=== PATIENT | female | born 1965 | race Caucasian/White ===

== ENCOUNTER 2017-03-02 14:33 | Emergency (ER) | payer BC, SELFPAY ==
[2017-03-02 15:16] VITALS: BP 128/55; PULSE 88; RESP 14; TEMP 36.6; O2SAT 97; BMI 39.5
== END 2017-03-02 15:55 | disposition home or self-care (01) ==
PROVIDERS: Emergency Provider Physician Assistant; Family Provider Family Medicine; PCP Family Medicine
DX: J20.9 Acute bronchitis, unspecified (principal); H66.91 Otitis media, unspecified, right ear
CPT/HCPCS: 99202

== ENCOUNTER → 2017-07-14 15:16 | Outpatient (POV) | payer BC, SELFPAY | PROVIDERS: Visit Provider Physician Assistant | DX: Z00.00 Encounter for general adult medical examination without abnormal findings (principal) ==

== ENCOUNTER → 2017-07-31 10:32 | Outpatient (CLI) | payer BC, SELFPAY ==
--- NOTE | 2017-07-31 10:46 | XR_ITS ---
XR foot LT min 3V HISTORY: ITS.REASON: LT FOOT PAIN ORDERING PHYSICIAN: Chetna Ferguson PATIENT AGE: 51 years COMPARISON: None FINDINGS: Mild hallux valgus with small bony spurring along the lateral distal aspect of the first metatarsal. Osteoarthritic changes are present at the navicular cuneiform joint and the tarsometatarsal junction. There is a small calcaneal spur 5 mm. No fracture or dislocation. No lytic or blastic change IMPRESSION: Osteoarthritis of the first metatarsophalangeal joint with mild hallux valgus along with osteoarthritis of the midfoot
== END ==
PROVIDERS: PCP Family Medicine; Visit Provider Nurse Practitioner Family
DX: M79.672 Pain in left foot (principal)
CPT/HCPCS: 73630

== ENCOUNTER → 2017-12-13 10:12 | Outpatient (CLI) | payer BC, SELFPAY ==
--- NOTE | 2017-12-13 10:18 | XR_ITS ---
EXAM: XR cervical spine 5V HISTORY: ITS.REASON: CERVICALGIA, PARESTHESIA OF SKIN ORDERING PHYSICIAN: Chetna Ferguson PATIENT AGE: 52 years COMPARISON: None FINDINGS: There is degenerative disc disease at C6-C7. No fracture or dislocation. No lytic or blastic change. There is mild uncovertebral hypertrophy at C7-T1 with mild right foraminal narrowing. There is mild left foraminal narrowing at C6-C7. No lytic or blastic change. No cervical ribs. IMPRESSION: Cervical spondylosis with mild degenerative disc disease and foraminal narrowing as described above
== END ==
PROVIDERS: PCP Nurse Practitioner Family; Visit Provider Nurse Practitioner Family
DX: M54.2 Cervicalgia (principal); R20.2 Paresthesia of skin; R20.0 Anesthesia of skin
CPT/HCPCS: 72050

== ENCOUNTER → 2018-05-12 15:10 | Outpatient (POV) | payer BC, SELFPAY | PROVIDERS: Visit Provider Dermatology | DX: Z00.00 Encounter for general adult medical examination without abnormal findings (principal) ==

== ENCOUNTER → 2018-05-12 16:17 | Outpatient (CLI) | payer BC, SELFPAY ==
[2018-05-12 16:47] LABS: Basophils # 0.1 K/mm3 (0-0.2); Basophils % 0.8 % (0.1-2.0); Eosinophils # 0.2 K/mm3 (0.0-0.4); Eosinophils % 2.8 % (0.1-12.0); Hematocrit 41.1 % (37.0-47.0); Hemoglobin 13.6 g/dL (12.2-16.2); Lymphocytes # 2.9 K/mm3 (0.7-4.5); Lymphocytes % 47.5 % (10-50); Mean Corpuscular HGB Conc 33.1 g/dL (31.8-35.4); Mean Corpuscular Hemoglobin 29.9 pg (27.0-31.2); Mean Corpuscular Volume 90.3 fl (81-99); Monocytes # 0.4 K/mm3 (0.1-1.0); Monocytes % 6.4 % (1.7-9.3); Neutrophils # 2.6 K/mm3 (1.8-7.8); Neutrophils % 42.6 % (37.0-80.0); Platelet Count 304 K/mm3 (142-424); Red Blood Count 4.55 M/mm3 (4.20-5.40); Red Cell Distribution Width 13.9 % (11.5-17.5)
[2018-05-12 18:07] LABS: Alanine Aminotransferase 36 U/L (12-78); Albumin/Globulin Ratio 1.3 (1.1-1.8); Alkaline Phosphatase 74 U/L (46-116); Anion Gap 13.7 mEq/L (5-15); Aspartate Amino Transferase 15 U/L (15-37); Bilirubin,Total 0.7 mg/dL (0.2-1.0); Blood Urea Nitrogen 14 mg/dL (7-18); Calcium 9.6 mg/dL (8.5-10.1); Carbon Dioxide 29 mmol/L (21.0-32.0); Chloride 100 mmol/L (98-107); Creatinine,Serum 0.69 mg/dL (0.55-1.02); Estimated Glomerular Filt Rate 90 ml/min (>60); GFR (African American) 109 ML/MIN (>60); Globulin 3.2 gm/dl (1.3-3.2); Glucose 98 mg/dL (74-106); Potassium 3.7 mmoL/L (3.5-5.1); Sodium 139 mmol/L (136-145); Total Protein,Serum 7.2 gm/dL (6.4-8.2)
[2018-05-14 09:24] LABS: Hep A Ab, IgM Negative (Negative); Hepatitis B Core Antibody IgM Negative (Negative); Hepatitis B Surface Antigen Negative (Negative)
[2018-05-15 08:49] LABS: Hepatitis C Antibody <0.1 s/co ratio (0.0-0.9)
[2018-05-18 14:16] LABS: QuantiFERON-TB Gold Plus Negative
== END ==
PROVIDERS: Visit Provider Dermatology
DX: L40.0 Psoriasis vulgaris (principal); Z79.899 Other long term (current) drug therapy
CPT/HCPCS: 36415; 80053; 80074; 85025; 86480

== ENCOUNTER → 2018-05-26 10:19 | Outpatient (POV) | payer BC, SELFPAY | PROVIDERS: Visit Provider Otolaryngology | DX: Z00.00 Encounter for general adult medical examination without abnormal findings (principal) ==

== ENCOUNTER → 2018-07-15 15:45 | Outpatient (CLI) | payer BC, SELFPAY ==
[2018-07-15 16:43] LABS: Basophils % 0.5 % (0.1-2.0); Eosinophils # 0.2 K/mm3 (0.0-0.4); Eosinophils % 2.9 % (0.1-12.0); Hematocrit 40.9 % (37.0-47.0); Hemoglobin 13.5 g/dL (12.2-16.2); Lymphocytes # 2.7 K/mm3 (0.7-4.5); Mean Corpuscular HGB Conc 33.2 g/dL (31.8-35.4); Mean Corpuscular Hemoglobin 29.5 pg (27.0-31.2); Mean Corpuscular Volume 89.1 fl (81-99); Mean Platelet Volume 7.7 fl (7.4-10.4); Monocytes # 0.4 K/mm3 (0.1-1.0); Monocytes % 5.2 % (1.7-9.3); Neutrophils # 3.5 K/mm3 (1.8-7.8); Neutrophils % 51.5 % (37.0-80.0); Platelet Count 314 K/mm3 (142-424); Red Blood Count 4.59 M/mm3 (4.20-5.40); Red Cell Distribution Width 14.3 % (11.5-17.5); White Blood Count 6.7 K/mm3 (4.8-10.8)
[2018-07-15 19:21] LABS: Anion Gap 14.7 mEq/L (5-15); Blood Urea Nitrogen 14 mg/dL (7-18); Calcium 8.9 mg/dL (8.5-10.1); Carbon Dioxide 28 mmol/L (21.0-32.0); Chloride 97 mmol/L (98-107); Estimated Glomerular Filt Rate 88 ml/min (>60); GFR (African American) 107 ML/MIN (>60); Glucose 123 mg/dL (74-106); Sodium 136 mmol/L (136-145)
[2018-07-15 19:24] LABS: Potassium 3.7 mmoL/L (3.5-5.1)
== END ==
PROVIDERS: Visit Provider Orthopaedic Surgery
DX: Z01.818 Encounter for other preprocedural examination (principal)
CPT/HCPCS: 36415; 80048; 85025; 93005

== ENCOUNTER → 2018-08-14 10:16 | Outpatient (CLI) | payer BC, SELFPAY ==
[2018-08-14 10:39] LABS: Basophils % 0.6 % (0.1-2.0); Eosinophils # 0.3 K/mm3 (0.0-0.4); Eosinophils % 6.7 % (0.1-12.0); Hematocrit 43.5 % (37.0-47.0); Hemoglobin 13.8 g/dL (12.2-16.2); Lymphocytes # 1.7 K/mm3 (0.7-4.5); Lymphocytes % 38.2 % (10-50); Mean Corpuscular HGB Conc 31.8 g/dL (31.8-35.4); Mean Corpuscular Hemoglobin 28.3 pg (27.0-31.2); Mean Platelet Volume 7.9 fl (7.4-10.4); Monocytes # 0.3 K/mm3 (0.1-1.0); Monocytes % 5.9 % (1.7-9.3); Neutrophils # 2.2 K/mm3 (1.8-7.8); Neutrophils % 48.5 % (37.0-80.0); Platelet Count 264 K/mm3 (142-424); Red Blood Count 4.89 M/mm3 (4.20-5.40); Red Cell Distribution Width 13.8 % (11.5-17.5); White Blood Count 4.5 K/mm3 (4.8-10.8)
[2018-08-14 11:41] LABS: Anion Gap 15.4 mEq/L (5-15); Blood Urea Nitrogen 16 mg/dL (7-18); Calcium 9.5 mg/dL (8.5-10.1); Carbon Dioxide 29 mmol/L (21.0-32.0); Chloride 101 mmol/L (98-107); Creatinine,Serum 0.85 mg/dL (0.55-1.02); Estimated Glomerular Filt Rate 71 ml/min (>60); GFR (African American) 85 ML/MIN (>60); Glucose 164 mg/dL (74-106); Potassium 4.4 mmoL/L (3.5-5.1); Sodium 141 mmol/L (136-145)
== END ==
PROVIDERS: Visit Provider Orthopaedic Surgery
DX: Z01.818 Encounter for other preprocedural examination (principal); M54.2 Cervicalgia
CPT/HCPCS: 36415; 80048; 85025; 93005

== ENCOUNTER → 2018-12-22 14:44 | Outpatient (POV) | payer BC, SELFPAY | PROVIDERS: Visit Provider Dermatology | DX: Z00.00 Encounter for general adult medical examination without abnormal findings (principal) ==

== ENCOUNTER → 2019-07-16 13:04 | Outpatient (CLI) | payer BC, SELFPAY ==
--- NOTE | 2019-07-16 13:15 | US_ITS ---
PROCEDURE: US THYROID CLINICAL INDICATION: THYROMEGALY Difficulty swallowing COMPARISON: No exams were available for comparison FINDINGS: Right lobe: 4.3 x 1.5 x 1.3 cm. There is diffuse heterogeneous echogenicity. 8 x 5 mm hypoechoic nodule in the mid polar region on the right Left lobe: 3.4 x 1.3 x 1.1 cm with diffuse heterogeneous echogenicity Isthmus: The isthmus is thickened at 4.5 mm also with heterogeneous echogenicity. Additional findings: IMPRESSION: The thyroid gland demonstrates heterogeneous echogenicity throughout given the thyroid is somewhat nodular appearance. There is a 8 x 5 mm hypoechoic nodule in the mid polar region on the right. Recommend six-month follow-up to confirm stability Dictated by: Mike Watts MD 07/16/2019 16:18 Electronically signed by Mike Watts MD in [facility] 07/16/2019 16:18
== END ==
PROVIDERS: PCP Family Medicine; Visit Provider Nurse Practitioner Family
DX: E01.0 Iodine-deficiency related diffuse (endemic) goiter (principal)
CPT/HCPCS: 76536

== ENCOUNTER → 2019-08-04 08:55 | Outpatient (CLI) | payer BC, SELFPAY ==
--- NOTE | 2019-08-04 08:59 | MM_ITS ---
PROCEDURE: MM DIG SCREENING MAMM BI W/CAD Digital Breast Tomosynthesis Included CLINICAL INDICATION: SCREENING There is no personal or family history of breast cancer. COMPARISON: DIGMAMMS MAMMOGRAM SCREEN-MOLD STACKER N/C from 03/02/2008 [facility] DIG MAMM-SCREEN MARILYN from 09/13/2014 [facility] DIG MAMM-SCREEN MARILYN W/CAD from 08/26/2016 TECHNIQUE: Standard CC and MLO images and 3D Tomosynthesis was obtained. R2 CAD reviewed. FINDINGS: The breasts are composed primarily of fat with minimal scattered fibroglandular densities throughout each breast. There is no suspicious lesion in either breast and no suspicious microcalcifications. IMPRESSION: Fatty type breast parenchyma with no suspicious lesions seen BI-RAD Category: 1 Negative FOLLOW-UP: 1YR 1 Year Follow-up (A letter has been sent to the patient regarding results of the study.) Dictated by: Dr. Jose Dash MD 08/06/2019 14:[address] Jose Dash MD in [place] 08/06/2019 14:54
== END ==
PROVIDERS: PCP Family Medicine; Visit Provider Nurse Practitioner Family
DX: Z12.31 Encounter for screening mammogram for malignant neoplasm of breast (principal)
CPT/HCPCS: 77063; 77067

== ENCOUNTER 2020-01-13 13:22 | Emergency (ER) | payer BC, SELFPAY ==
[2020-01-13 14:21] VITALS: BP 136/92; PULSE 91; RESP 18; TEMP 36.8; O2SAT 98; BMI 39.2
--- NOTE | 2020-01-13 14:31 | HMH.EDUTC ---
[facility] [place] Disposition Clinical Impression: Sinusitis Qualifiers: Sinusitis location: unspecified location Chronicity: unspecified Qualified Code(s): J32.9 - Chronic sinusitis, unspecified Disposition: Home, Self-Care Condition on Discharge: Good Instructions: Sinusitis, Sinus Headache, DI for Sinusitis Additional Instructions: ? Start antibiotic today. Be sure to complete entire prescription even if feeling better ? Monitor temp. Tylenol every 4 hours as needed and / or ibuprofen every 6 hours as needed ( As long as your primary care physician has told you that it ok to take both. For fever/aches/pains ER if no less than 101 despite Tylenol or Motrin ? Humidifier/vaporizer or hot steamy shower ? Inhaler every 4-6 hours as needed like we discussed as it was prescribed. If unsure how to use it, ask pharmacist to demonstrate how. Should help open airways and improve cough, wheezing, and shortness of breath ? Mucinex during the day for your cough and cough suppressant only at night. Be sure to drink lots of water. Insurance may not cover a prescriptions for mucinex. Might be cheaper to get 400mg tablets and take 2 tablet in the morning, mid-day and evening with lots of water. *Start steroid today. Helps with inflammation therefore, cough and wheezing. Follow directions on the package. Reviewed side effects. Patient reports taking them before. You was tested for today for COVID19 your test result should be back in the next 24-48 hours, you may call to the [facility] later today or tomorrow to see if your test results are back and the result [phone] [facility] hours are 9am-9pm You was given a handout with instructions for Self Quarantine and Self isolation for while you wait on test results and what to do if they are positive If you are positive the Health Dept will be contacting you also Prescriptions: Amoxicillin/Potassium Clav [Augmentin 875-125 Tablet] 1 tab PO Q12H 10 Days #20 tab Transmission Status: Pending to [facility] predniSONE [Deltasone 10mg tablet] 10 mg PO BID 5 Days #10 tab Transmission Status: Pending to [facility] Fluticasone Propionate [Flonase 50mcg nasal spray 16gm] 1 spr NS DAILY #1 bottle Transmission Status: Pending to [facility] Referrals: Juan Ramon Zhang MD [Primary Care Provider] - As needed Forms: Work/School Release Time of Disposition: 14:41 Medical Decision Making - Gonzalo Inquiry Pt receiving controlled substance: No Gonzalo was queried for this patient: No Vital Signs: 01/13/20 14:21 Temperature 98.2 F Temperature Source Oral Pulse Rate [Radial] 91 H Respiratory Rate 18 Blood Pressure [Right Arm] 136/92 H Blood Pressure Mean [Right Arm] 106 Blood Pressure Source [Right Arm] Automatic Cuff Blood Pressure Position [Right Arm] Sitting 02 Sat by Pulse Oximetry 98 Oxygen Delivery Method Room Air Orders (Tests/Meds): ORDERS Category Date Time Status Covid-19 Nasal PCR ([facility]) Routine Lab 01/13/20 14:17 Ordered Medical Decision Narrative: Patient states that she has taken augmentin and prednisone without complications or reactions [facility] [place] HPI - General Stated complaint: Cough, sinus pressure Time Seen by Provider: 01/13/20 14:31 Mode of Arrival: Ambulatory Source of Information: Patient Limitations: No Limitations Description of Symptoms (Recalled from Triage Doc. by RN): POSSIBLE SINUS INFECTION, WANTS TESTED FOR COVID. SINUS PAIN AND PRESSURE. HEENT Symptoms (Recalled from RN notes): Yes Resp Symptoms (Recalled from RN notes): No Skin Symptoms (Recalled from RN notes): No MS Symptoms (Recalled from RN notes): No Functional Status (Recalled from RN notes): WNL - History of Present Illness Provider Complaint: Patient states that she has been having sinus pain and pressure and feels like she has a sinus infection States that she also wants to get tested for COVID to make sure that she doesnt having it - Related Data Home Medications Medication Instructions Maikel
[2020-01-13 15:28] VITALS: BP 136/92; PULSE 91; RESP 18; TEMP 36.8; O2SAT 98
--- NOTE | 2020-01-13 19:49 | PC.NURSE ---
Patient notified of positive covid results.
== END 2020-01-13 15:29 | disposition home or self-care (01) ==
PROVIDERS: Emergency Provider Nurse Practitioner; PCP Family Medicine
DX: U07.1 COVID-19 (principal); E11.9 Type 2 diabetes mellitus without complications; E78.5 Hyperlipidemia, unspecified; I10 Essential (primary) hypertension; J44.9 Chronic obstructive pulmonary disease, unspecified; E03.9 Hypothyroidism, unspecified; M79.7 Fibromyalgia; Z79.899 Other long term (current) drug therapy
CPT/HCPCS: 99201; U0003

== ENCOUNTER 2020-01-20 10:27 | Emergency (ER) | payer BC, SELFPAY ==
[2020-01-20] VITALS (15 sets, daily range): BP systolic 91–141; BP diastolic 44–100; PULSE 109–117; RESP 18–22; TEMP 36.7–37.3; O2SAT 94–98; BMI 39.0
--- NOTE | 2020-01-20 10:44 | ECG_ITS ---
APPROVED REPORT Exam: Resting ECG HR:96 bpm ECG Measurements Heart Rate 96 AXES CA 134 P 46 QRSd 84 QRS -8 QT 332 T 41 QTc 419 Conclusion Normal sinus rhythm Late r wave progression Abnormal ECG Electronically signed by : Juan Ramon Castaneda, 01/24/2020 07:33:10
--- NOTE | 2020-01-20 10:45 | HMH.EDGENADL ---
ED Disposition Clinical Impression: COVID-19 virus infection, Shortness of breath Disposition: Home, Self-Care Condition on Discharge: Good Instructions: Preventing the Spread of Coronavirus Discharge Instructions Additional Instructions: Return to the emergency department if worsening shortness of breath, intractable vomiting or severe weakness. Dr. Zhang is in the office tomorrow if you need to contact him for follow-up. Take the following supplements: Viatmin c 1000 mg twice a day Zinc sulfate 50 mg daily Vitamin D 1000 units daily Referrals: Juan Ramon Zhang MD [Primary Care Provider] - - Critical Care Critical Care Time: No Attestation: On 01/20/20, the high probability of a clinically significant, sudden or life threatening deterioration of the following system(s) required my full and direct attention, intervention and personal management. The time I documented below is in addition to time spent performing reported procedures but includes the following listed in this critical care notation. Medical Decision Making - Medical Records Medical records reviewed: Yes: I reviewed the patient's medical records. MR Comment: Reviewed urgent treatment center visit 01/13/2020. Diagnosed with sinusitis, COVID-19 swab was sent. Result later returned as positive. - Gonzalo Inquiry Pt receiving controlled substance: No Vital Signs: 01/20/20 10:27 01/20/20 12:42 01/20/20 12:53 Temperature 98.1 F 99.1 F Temperature Source Oral Oral Pulse Rate Pulse Rate [Radial] 113 H 112 H 113 H Respiratory Rate 22 20 20 Blood Pressure Blood Pressure [Right Arm] 100/82 L 117/67 141/100 H Blood Pressure Mean [Right Arm] 88 83 113 Blood Pressure Position Blood Pressure Position [Right Arm] Sitting Sitting 02 Sat by Pulse Oximetry 97 96 96 Oxygen Delivery Method Room Air Room Air Room Air 01/20/20 13:02 01/20/20 13:15 01/20/20 13:30 Temperature 99 F Temperature Source Oral Pulse Rate Pulse Rate [Radial] 115 H 111 H 110 H Respiratory Rate 20 20 22 Blood Pressure Blood Pressure [Right Arm] 91/69 L 114/62 106/72 L Blood Pressure Mean [Right Arm] 76 79 83 Blood Pressure Position Blood Pressure Position [Right Arm] Sitting Sitting Sitting 02 Sat by Pulse Oximetry 96 96 94 L Oxygen Delivery Method Room Air 01/20/20 13:45 01/20/20 14:00 01/20/20 14:16 Temperature 99 F 99 F Temperature Source Oral Oral Pulse Rate Pulse Rate [Radial] 109 H 111 H 115 H Respiratory Rate 22 18 Blood Pressure Blood Pressure [Right Arm] 122/75 120/71 107/78 L Blood Pressure Mean [Right Arm] 90 87 87 Blood Pressure Position Blood Pressure Position [Right Arm] Sitting Sitting Sitting 02 Sat by Pulse Oximetry 96 95 97 Oxygen Delivery Method Room Air Room Air 01/20/20 14:35 01/20/20 14:46 01/20/20 15:00 Temperature Temperature Source Pulse Rate Pulse Rate [Radial] 117 H 112 H 109 H Respiratory Rate Blood Pressure Blood Pressure [Right Arm] 104/54 L 99/44 L 124/60 Blood Pressure Mean [Right Arm] 70 62 81 Blood Pressure Position Blood Pressure Position [Right Arm] Sitting Sitting Sitting 02 Sat by Pulse Oximetry 98 Oxygen Delivery Method Room Air 01/20/20 15:15 01/20/20 15:31 01/20/20 16:49 Temperature 99 F 99 F Temperature Source Oral Oral Pulse Rate 112 H Pulse Rate [Radial] 115 H 115 H Respiratory Rate 22 22 Blood Pressure 122/74 Blood Pressure [Right Arm] 119/79 139/67 Blood Pressure Mean [Right Arm] 92 91 Blood Pressure Position Sitting Blood Pressure Position [Right Arm] Sitting Sitting 02 Sat by Pulse Oximetry 97 Oxygen Delivery Method Room Air Room Air - Lab Data Lab results reviewed: Yes: I reviewed the patient's lab results. Lab Results 01/20/20 10:55: WBC 6.5, RBC 5.15, Hgb 15.4, Hct 47.2 H, MCV 91.8, MCH 29.9, MCHC 32.6, RDW 14.6, Plt Count 209, MPV 7.6, Neut % (Auto) 71.0, Lymph % (Auto) 23.5, [place] % (Auto) 4.7, Eos % (Auto) 0.4, Baso %
--- NOTE | 2020-01-20 10:56 | XR_ITS ---
PROCEDURE: XR CHEST PORTABLE CLINICAL HISTORY: covid-19, soa COMPARISON: CR CXR CHEST(2 VIEWS-NOT PORTABLE) from 05/25/2012 CR CXR CHEST(2 VIEWS-NOT PORTABLE) from 08/09/2015 FINDINGS: Cardiomegaly without failure. The lungs are clear without infiltrates, suspicious nodules, or pleural effusions. No acute bony abnormalities. IMPRESSION: Cardiomegaly otherwise negative Dictated by: Mike Watts MD 01/20/2020 11:33 Mike Watts MD in [place] 01/20/2020 11:33
[2020-01-20 11:16] LABS: Chloride 99 mmol/L (98-107); Potassium 4.5 mmoL/L (3.5-5.1); Sodium 137 mmol/L (136-145)
[2020-01-20 11:19] LABS: Alanine Aminotransferase 34 U/L (12-78); Albumin Level 4.5 g/dl (3.5-5.0); Albumin/Globulin Ratio 1.4 (1.1-1.8); Alkaline Phosphatase 95 U/L (38-126); Anion Gap 13.5 mEq/L (5-15); Aspartate Amino Transferase 31 U/L (14-36); Bilirubin,Total 0.6 mg/dl (0.2-1.3); Blood Urea Nitrogen 14 mg/dl (7-17); Calcium 10.2 mg/dl (8.4-10.2); Carbon Dioxide 29 mmol/L (22.0-30.0); Creatinine Clearance Estimated 161 mL/min (50-200); Estimated Glomerular Filt Rate 88 ml/min (>60); GFR (African American) 106 ML/MIN (>60); Globulin 3.3 g/dL (1.3-3.2); Glucose 153 mg/dl (74-100); Total Protein,Serum 7.8 g/dl (6.3-8.2)
[2020-01-20 11:21] LABS: Lactic Acid 2.6 mmol/L (0.7-2.1)
[2020-01-20 11:24] LABS: D-Dimer 0.86 ug/mL (0.15-8.0)
[2020-01-20 11:28] LABS: Basophils % 0.5 % (0.1-2.0); Eosinophils % 0.4 % (0.1-12.0); Hematocrit 47.2 % (37.0-47.0); Hemoglobin 15.4 g/dL (12.2-16.2); Lymphocytes # 1.5 K/mm3 (0.7-4.5); Lymphocytes % 23.5 % (10-50); Mean Corpuscular HGB Conc 32.6 g/dL (31.8-35.4); Mean Corpuscular Hemoglobin 29.9 pg (27.0-31.2); Mean Corpuscular Volume 91.8 fl (81-99); Mean Platelet Volume 7.6 fl (7.4-10.4); Monocytes # 0.3 K/mm3 (0.1-1.0); Monocytes % 4.7 % (1.7-9.3); Neutrophils # 4.6 K/mm3 (1.8-7.8); Platelet Count 209 K/mm3 (142-424); Red Blood Count 5.15 M/mm3 (4.20-5.40); Red Cell Distribution Width 14.6 % (11.5-17.5); White Blood Count 6.5 K/mm3 (4.8-10.8)
[2020-01-20 11:32] LABS: Troponin I < 0.01 ng/ml (0.00-0.034)
--- NOTE | 2020-01-20 12:35 | PC.NURSE ---
Discussed with pt potential side effects of infusion. Educated pt on fact sheet and consent. No questions at this time. Will continue to monitor
--- NOTE | 2020-01-20 13:00 | PC.NURSE ---
pt astrid. medications
--- NOTE | 2020-01-20 13:30 | PC.NURSE ---
pt resting offers no c/o at present
--- NOTE | 2020-01-20 13:42 | PC.NURSE ---
IV INFUSION COMPLETED
--- NOTE | 2020-01-20 14:00 | PC.NURSE ---
iv site with no redness or swelling noted. pt astrid medications
--- NOTE | 2020-01-20 15:00 | PC.NURSE ---
pt resting c/o nausea
[2020-01-20 15:04] LABS: Reflex Lactic Add Lactic Reflex
== END 2020-01-20 16:51 | disposition home or self-care (01) ==
PROVIDERS: Emergency Provider Emergency Medicine; PCP Family Medicine
DX: U07.1 COVID-19 (principal); J45.909 Unspecified asthma, uncomplicated; E11.9 Type 2 diabetes mellitus without complications; E78.5 Hyperlipidemia, unspecified; E03.9 Hypothyroidism, unspecified; R01.1 Cardiac murmur, unspecified; M79.7 Fibromyalgia; Z79.899 Other long term (current) drug therapy
CPT/HCPCS: 71045; 80053; 83605; 84484; 85025; 85378; 87040; 93005; 96365; 96375; 96376; 99284; J2405

== ENCOUNTER → 2020-05-09 15:26 | Outpatient (POV) | payer BC, SELFPAY | PROVIDERS: Visit Provider Dermatology | DX: Z00.00 Encounter for general adult medical examination without abnormal findings (principal) ==

== ENCOUNTER → 2020-05-12 13:42 | Outpatient (CLI) | payer BC, SELFPAY ==
--- NOTE | 2020-05-12 13:45 | US_ITS ---
PROCEDURE: US THYROID CLINICAL INDICATION: THYROID NODULE COMPARISON: US US THYROID from 07/16/2019 FINDINGS: The thyroid gland has diffuse heterogeneous echogenicity with multinodular contour. This makes nodular evaluation somewhat difficult. Some nodules outline below may only be related to heterogeneous echogenicity. Right lobe: 3.8 x 1.1 x 1.3 cm. Ten by 4 mm hypoechoic nodule upper pole. Unchanged. 8 x 5 mm hypoechoic nodule lower pole unchanged. An additional nodule measuring 8 mm is demonstrated along the lower pole which may be separate from the thyroid gland or an exophytic nodule measuring 8 mm. This was not previously demonstrated but may have been due to the imaging technique. Consider short-term follow-up with attention to this region to confirm stability. Left lobe: 3.4 x 0.7 x 1.1 cm. Heterogeneous echogenicity. Small hyperechoic nodule in the mid polar region at 5 mm. This is unchanged. Isthmus: The isthmus is thickened 5 mm. A 5 mm hypoechoic nodules present in the mid aspect of the isthmus unchanged. Additional findings: IMPRESSION: Diffuse heterogeneous echogenicity of the thyroid gland with multinodular contour making nodule evaluation difficult. Most nodular regions are unchanged. There is an additional nodule along the lower pole on the right which may be separate from the thyroid gland measuring 8 mm. This was not previously demonstrated but could be due to intra observer variance. Suggest 6 month follow-up with attention to this region to confirm short term stability Dictated by: Mike Watts MD 05/13/2020 10:04 Mike Watts MD in [place] 05/13/2020 10:04
== END ==
PROVIDERS: PCP Family Medicine; Visit Provider Nurse Practitioner Family
DX: E04.1 Nontoxic single thyroid nodule (principal)
CPT/HCPCS: 76536

== ENCOUNTER 2020-11-19 10:01 | Emergency (ER) | payer BC, SELFPAY ==
[2020-11-19 11:00] VITALS: BP 144/92; PULSE 88; RESP 20; TEMP 36.9; O2SAT 97; BMI 39.5
--- NOTE | 2020-11-19 11:27 | HMH.EDUTC ---
[facility] [place] Disposition Clinical Impression: Sinusitis Qualifiers: Sinusitis location: unspecified location Chronicity: acute Recurrence: non-recurrent Qualified Code(s): J01.90 - Acute sinusitis, unspecified Disposition: Home, Self-Care Condition on Discharge: Good Instructions: Sinusitis, DI for Sinusitis Additional Instructions: Drink plenty of fluids. Take tylenol or ibuprofen for pain or fever. Take the medications as directed. Follow up with your regular doctor. GO TO THE ER FOR ANY WORSENING SYMPTOMS Quarantine until you know the results of your covid-19 test. If it is positive, the health department should call you and give you further instructions about your length of Quarantine and other things. Notify your school or workplace of your results and follow their instructions regarding return to work/school. The cough medication (promethazine dm) will make you drowsy, so don't drive or operate heavy machinery after taking it. Prescriptions: Promethazine/Dextromethorphan [Promethazine-Dm Syrup] 5 ml PO Q6HP PRN #240 ml PRN Reason: Cough Transmission Status: Received by [facility] Amoxicillin/Potassium Clav [Augmentin 875-125 Tablet] 1 tab PO Q12H 10 Days #20 tab Transmission Status: Received by [facility] methylPREDNISolone [Medrol] 4 mg PO DIRECTED 6 Days #21 packet Transmission Status: Received by [facility] Referrals: Juan Ramon Zhang MD [Primary Care Provider] - Forms: Work/School Release Time of Disposition: 11:33 Medical Decision Making - Medical Records Medical records reviewed: No: I reviewed the patient's medical records. - Gonzalo Inquiry Pt receiving controlled substance: No Vital Signs: 11/19/20 11:00 11/19/20 11:35 Temperature 98.5 F 98.5 F Temperature Source Oral Pulse Rate 88 Pulse Rate [Right Brachial] 88 Respiratory Rate 20 20 Blood Pressure 144/92 H Blood Pressure [Right Arm] 144/92 H Blood Pressure Mean [Right Arm] 109 Blood Pressure Source [Right Arm] Automatic Cuff Blood Pressure Position [Right Arm] Sitting 02 Sat by Pulse Oximetry 97 Oxygen Delivery Method Room Air Orders (Tests/Meds): ORDERS Category Date Time Status Covid-19 Nasal PCR ([facility]) Routine Lab 11/19/20 11:41 Ordered Covid-19 Nasal PCR ([facility]) Routine Lab 11/19/20 11:43 Received [facility] [place] HPI - General Stated complaint: sinus pressure Time Seen by Provider: 11/19/20 11:27 Mode of Arrival: Ambulatory Source of Information: Patient Limitations: No Limitations Description of Symptoms (Recalled from Triage Doc. by RN): PATIENT C/O SNEEZING AND SINUS PRESSURE HEENT Symptoms (Recalled from RN notes): Yes Resp Symptoms (Recalled from RN notes): No Skin Symptoms (Recalled from RN notes): No MS Symptoms (Recalled from RN notes): No Functional Status (Recalled from RN notes): WNL - History of Present Illness Provider Complaint: She has had sinus congestion and sinus pressure for the past 3 weeks. She believes that she has a sinus infection. She denies any known covid-19 exposure. She denies any fever/chills/body aches. Onset (ago): minute(s) - Related Data Previous Rx's Medication Instructions Recorded Amoxicillin/Potassium Clav 1 tab PO Q12H 10 Days #20 tab 11/19/20 [Augmentin 875-125 Tablet] Promethazine/Dextromethorphan 5 ml PO Q6HP PRN #240 ml 11/19/20 [Promethazine-Dm Syrup] methylPREDNISolone [Medrol] 4 mg PO DIRECTED 6 Days #21 11/19/20 packet Allergies Allergy/AdvReac Type Severity Reaction Status Date / Time No Known Allergies Allergy Verified 11/19/20 11:22 - Worker's Comp Is this a Worker's Comp case?: No [facility] History - Hepatitis A Screen Drug use history?: No High risk sexual behaviors?: No History of sexually transmitted infection?: No Currently employed?: No Childcare worker?: No Do you have indoor plumbing?: Yes Do you have electricity?: Yes Attestation statement:: This patient has been screened for Hepa
[2020-11-19 11:35] VITALS: BP 144/92; PULSE 88; RESP 20; TEMP 36.9; O2SAT 97
== END 2020-11-19 11:50 | disposition home or self-care (01) ==
PROVIDERS: Emergency Provider Nurse Practitioner Family; PCP Family Medicine
DX: J01.90 Acute sinusitis, unspecified (principal)
CPT/HCPCS: 99202; C9803; G0463; U0003; U0005

== ENCOUNTER 2021-01-04 16:44 | Emergency (ER) | payer BC, SELFPAY ==
[2021-01-04 16:45] VITALS: BP 124/85; PULSE 92; RESP 18; TEMP 36.6; O2SAT 94; BMI 39.5
--- NOTE | 2021-01-04 17:06 | CT_ITS ---
PROCEDURE INFORMATION: Exam: CT Cervical Spine Without Contrast Exam date and time: 01/04/2021 5:06 PM Age: 55 years old Clinical indication: Injury or trauma; Fall; Blunt trauma TECHNIQUE: Imaging protocol: Computed tomography images of the cervical spine without contrast. Radiation optimization: All CT scans at this facility use at least one of these dose optimization techniques: automated exposure control; mA and/or kV adjustment per patient size (includes targeted exams where dose is matched to clinical indication); or iterative reconstruction. COMPARISON: CR [id number] XR cervical spine 5V 12/13/2017 10:20 AM FINDINGS: Bones/joints: Anterior fusion noted C5-C6 without evidence of complication. The facet joints demonstrate mild degenerative hypertrophy and sclerosis. There is no evidence of acute fracture. Discs/Spinal canal/Neural foramina: The cervical spine demonstrates mild degenerative changes at multiple levels. Prevertebral Space: No prevertebral soft tissue swelling is present. Lungs: Lung apices are normal. Soft tissues: Unremarkable. IMPRESSION: 1. Anterior fusion noted C5-C6 without evidence of complication. 2. The cervical spine demonstrates mild degenerative changes at multiple levels. 3. No evidence of acute fracture.
--- NOTE | 2021-01-04 17:06 | CT_ITS ---
PROCEDURE INFORMATION: Exam: CT Thoracic Spine Without Contrast Exam date and time: 01/04/2021 5:06 PM Age: 55 years old Clinical indication: Injury or trauma; Fall; Blunt trauma (contusions or hematomas) TECHNIQUE: Imaging protocol: Computed tomography images of the thoracic spine without contrast. Radiation optimization: All CT scans at this facility use at least one of these dose optimization techniques: automated exposure control; mA and/or kV adjustment per patient size (includes targeted exams where dose is matched to clinical indication); or iterative reconstruction. COMPARISON: CT CERVICAL SPINE WO CON 01/04/2021 5:17 PM FINDINGS: Vertebrae: There is no evidence of acute fracture. The facet joints demonstrate mild degenerative hypertrophy and sclerosis. Discs/Spinal canal/Neural foramina: The thoracic spine demonstrates mild degenerative changes at multiple levels. Other bones/joints: Sclerotic changes noted along the inferior aspect of T9. Soft tissues: Unremarkable. IMPRESSION: 1. Sclerotic changes noted along the inferior aspect of T9. 2. No evidence of acute fracture. 3. The thoracic spine demonstrates mild degenerative changes at multiple levels.
--- NOTE | 2021-01-04 17:06 | CT_ITS ---
PROCEDURE INFORMATION: Exam: CT Lumbar Spine Without Contrast Exam date and time: 01/04/2021 5:06 PM Age: 55 years old Clinical indication: Injury or trauma; Fall; Blunt trauma (contusions or hematomas) TECHNIQUE: Imaging protocol: Computed tomography images of the lumbar spine without contrast. Radiation optimization: All CT scans at this facility use at least one of these dose optimization techniques: automated exposure control; mA and/or kV adjustment per patient size (includes targeted exams where dose is matched to clinical indication); or iterative reconstruction. COMPARISON: CT THORACIC SPINE WO CON 01/04/2021 5:20 PM FINDINGS: Vertebrae: Schmorl's node along the superior endplate of L3. There is no evidence of acute fracture. Discs/Spinal canal/Neural foramina: The lumbar spine demonstrates mild degenerative changes at multiple levels. Soft tissues: Unremarkable. IMPRESSION: 1. The lumbar spine demonstrates mild degenerative changes at multiple levels. 2. No evidence of acute fracture.
[2021-01-04 18:18] VITALS: BP 145/64; PULSE 58; RESP 16; O2SAT 99
--- NOTE | 2021-01-04 18:26 | HMH.EDGENADL ---
ED Disposition Clinical Impression: Lower back injury Qualifiers: Encounter type: initial encounter Qualified Code(s): S39.92XA - Unspecified injury of lower back, initial encounter Lumbar strain Qualifiers: Encounter type: initial encounter Qualified Code(s): S39.012A - Strain of muscle, fascia and tendon of lower back, initial encounter Disposition: Home, Self-Care Condition on Discharge: Fair Instructions: DI for Low Back Pain Additional Instructions: Rest, heating pad as needed. Percocet as needed for pain. Additional instructions for BACK PAIN: See your physician as soon as possible for further evaluation. Return immediately if back pain becomes intolerable, or if fever, numbness or weakness of your legs, loss of control of your bowels or bladder. Additional instructions for CONTROLLED SUBSTANCES: You have been prescribed a medication that is a controlled substance. Controlled substances include pain medications known as opiates and sedative nerve medications known as benzodiazepines. Tramadol, fioricet, and gabapentin are also controlled substances. Some common opiates include: Codeine (such as Tylenol #3) Hydrocodone (Vicodin, Lortab, Lorcet, Glidden) Oxycodone (Percocet, Percodan, Oxycodone, Oxy IR) Some common benzodiazepines include: Diazepam (Valium) Lorazepam (Ativan) Alprazolam (Xanax) Clonazepam (Klonopin) Oxazepam (Serax) All of these controlled substances are highly addictive and frequently abused. Misuse can and frequently does lead to addiction as well as overdose and . Medication should be stored in a locked cabinet or other secure storage unit. Do not store the medication in a motor vehicle. Short term supplies, 3 days or less, are prescribed because of the highly addictive nature of the medication. Any of the controlled substance medication NOT taken should be disposed of properly and NOT SAVED. The recommended method of disposing of unused medications is: Place the medicines in a sealable plastic bag. If the medicine is a solid, crush it or add water to dissolve it. Add something undesirable (cat litter, coffee grounds, etc.) Dispose of sealed bag in household trash Do not flush or pour unused medicines down a sink or drain. Controlled substances should not be shared, given away or sold. Because of the addictive nature and frequent abuse, these medications are sometimes stolen. These medications should be kept in a safe place where they cannot be stolen. Do not keep them in your car or purse. Lost or stolen prescriptions for controlled substances WILL NOT BE REFILLED in this emergency department, regardless of whether a police report was filed. Prescriptions: Oxycodone HCl/Acetaminophen [Percocet 5/325mg tablet] 1 tab PO Q6HP PRN #10 tab PRN Reason: Moderate To Severe Pain Transmission Status: Received by [facility] Referrals: Juan Ramon Zhang MD [Primary Care Provider] - - Critical Care Critical Care Time: No Attestation: On 01/04/21, the high probability of a clinically significant, sudden or life threatening deterioration of the following system(s) required my full and direct attention, intervention and personal management. The time I documented below is in addition to time spent performing reported procedures but includes the following listed in this critical care notation. Medical Decision Making - Gonzalo Inquiry Pt receiving controlled substance: Yes Gonzalo was queried for this patient: Yes Risks and benefits of using a controlled substance: were discussed with pt by me Vital Signs: 01/04/21 16:45 01/04/21 18:18 Temperature 97.8 F Temperature Source Oral Pulse Rate 58 L Pulse Rate [Right Radial] 92 H Respiratory Rate 18 16 Blood Pressure 145/64 H Blood Pressure [Right Arm] 124/85 Blood Pressure Mean [Right Arm] 98 Blood Pressure Source Automatic Cuff Blood Pressure Source [Right Arm] Automatic Cuff Blood Pressur
--- NOTE | 2021-01-04 18:40 | PC.NURSE ---
PT ambulated to bathroom with 2 assist. PT c/o back pain and spasms still.
[2021-01-04 19:15] VITALS: BP 132/70; PULSE 87; RESP 16; TEMP 36.8; O2SAT 98
== END 2021-01-04 19:17 | disposition home or self-care (01) ==
PROVIDERS: Emergency Provider Emergency Medicine; PCP Family Medicine
DX: S39.92XA Unspecified injury of lower back, initial encounter (principal); S39.012A Strain of muscle, fascia and tendon of lower back, initial encounter; W01.0XXA Fall on same level from slipping, tripping and stumbling without subsequent striking against object, initial encounter; Y92.017 Garden or yard in single-family (private) house as the place of occurrence of the external cause; E11.9 Type 2 diabetes mellitus without complications; I10 Essential (primary) hypertension; R01.1 Cardiac murmur, unspecified; E78.5 Hyperlipidemia, unspecified; E03.9 Hypothyroidism, unspecified; Z79.899 Other long term (current) drug therapy
CPT/HCPCS: 72125; 72128; 72131; 96374; 96375; 99282; J2405

== ENCOUNTER 2021-02-16 09:01 | Emergency (ER) | payer BC, SELFPAY ==
[2021-02-16 09:11] VITALS: BP 134/68; PULSE 90; RESP 20; TEMP 36.9; O2SAT 97; BMI 39.5
--- NOTE | 2021-02-16 09:19 | XR_ITS ---
PROCEDURE: XR CHEST 2V CLINICAL HISTORY: productive cough COMPARISON: CR CXR CHEST(2 VIEWS-NOT PORTABLE) from 05/25/2012 CR CXR CHEST(2 VIEWS-NOT PORTABLE) from 08/09/2015 CR XR CHEST PORTABLE from 01/20/2020 FINDINGS: The cardiomediastinal silhouette and pulmonary vascularity are within normal limits. The lungs are clear without infiltrates, suspicious nodules, or pleural effusions. There is a bone plate over lower cervical spine IMPRESSION: No acute findings. Dictated by: Mike Watts MD 02/16/2021 09:45 Mike Watts MD in [place] 02/16/2021 09:45
--- NOTE | 2021-02-16 09:20 | HMH.EDUTC ---
[facility] Disposition Clinical Impression: Acute exacerbation of chronic bronchitis Disposition: Home, Self-Care Condition on Discharge: Good Instructions: DI for Chronic Bronchitis Additional Instructions: Drink plenty of fluids. Take tylenol or ibuprofen for pain or fever. Take the medications as directed. Follow up with your regular doctor. GO TO THE ER FOR ANY WORSENING SYMPTOMS Don't start the oral steroids until tomorrow, since you had the shot here today. The cough medication (promethazine dm) will make you drowsy, so don't drive or operate heavy machinery after taking it. Prescriptions: Promethazine/Dextromethorphan [Promethazine-Dm Syrup] 5 ml PO Q6HP PRN #240 ml PRN Reason: Cough Transmission Status: Received by [facility] Amoxicillin/Potassium Clav [Augmentin 875-125 Tablet] 1 tab PO Q12H 10 Days #20 tab Transmission Status: Received by [facility] methylPREDNISolone [Medrol] 4 mg PO DIRECTED 6 Days #21 packet Transmission Status: Received by [facility] guaiFENesin [Mucinex 600mg tablet] 1 - 2 tab PO BIDP PRN #30 tab PRN Reason: Congestion Transmission Status: Received by [facility] Referrals: Juan Ramon Zhang MD [Primary Care Provider] - Time of Disposition: 10:20 Medical Decision Making - Medical Records Medical records reviewed: No: I reviewed the patient's medical records. - Gonzalo Inquiry Pt receiving controlled substance: No Vital Signs: 02/16/21 09:11 Temperature 98.4 F Temperature Source Oral Pulse Rate [Left] 90 Respiratory Rate 20 Blood Pressure [Right Arm] 134/68 Blood Pressure Mean [Right Arm] 90 02 Sat by Pulse Oximetry 97 Orders (Tests/Meds): ED MEDICATIONS Discontinued Medications Generic Name Dose Route Start Last Admin Trade Name Freq PRN Reason Stop Dose Admin Ceftriaxone Sodium 1 gm 02/16/21 10:03 02/16/21 10:20 Ceftriaxone 1gm Vial IM 02/16/21 10:04 1 gm ONCE ONE Administration Lidocaine HCl 0 ml 02/16/21 10:03 02/16/21 10:21 Lidocaine 1% 5ml Pf Vial IM 02/16/21 10:04 2 ml ONCE ONE Administration Methylprednisolone Sodium Succinate 125 mg 02/16/21 10:03 02/16/21 10:22 Methylprednisolone Sod Succ 125mg Vial IM 02/16/21 10:04 125 mg ONCE ONE Administration ORDERS Category Date Time Status Full Resp Panel w/COVID ([facility]) Routine Lab 02/16/21 10:18 Ordered [facility] HPI - General Stated complaint: covid exposure, sore throat, cough, body aches Time Seen by Provider: 02/16/21 09:20 Mode of Arrival: Ambulatory Source of Information: Patient Limitations: No Limitations Description of Symptoms (Recalled from Triage Doc. by RN): pt c/o a productive cough with green sputum. HEENT Symptoms (Recalled from RN notes): No Resp Symptoms (Recalled from RN notes): Yes (productive cough with green sputum) Skin Symptoms (Recalled from RN notes): No MS Symptoms (Recalled from RN notes): No Functional Status (Recalled from RN notes): wnl - History of Present Illness Provider Complaint: She states that for the past 3 days she has had worsening chest and sinus congestion. She has a sore throat also. She has a history of a having chronic bronchitis since having Covid-19 in December 2019. She denies shortness of breath and fever. - Related Data Home Medications Medication Instructions Recorded Confirmed dapagliflozin 5 mg tablet 5 mg PO QAM 07/20/17 06/27/18 gabapentin 300 mg capsule 300 mg PO BID 07/20/17 06/27/18 levocetirizine 5 mg tablet 5 mg PO QHS 07/20/17 06/27/18 olmesartan 20 mg-amlodipine 5 1 tab PO ONCE 07/20/17 06/27/18 mg-hydrochlorothiazide 12.5 mg tablet thyroid (pork) 30 mg tablet 30 mg PO ONCE 07/20/17 06/27/18 turmeric root extract 500 mg 1,000 mg PO BID 07/20/17 06/27/18 capsule Amitriptyline HCl [Elavil 10mg 10 mg PO DAILY 06/05/18 06/27/18 tablet] Chrm/Vineg/Bit-Orang Peel/Gr T 1 each PO DAILY 06/05/18 06/27/18 [Apple Cider Vinegar Plus Tb]
[2021-02-16 10:43] VITALS: BP 134/68; PULSE 90; RESP 20; TEMP 36.9
[2021-02-16 10:48] LABS: Adenovirus,PCR Not Detected (NotDetected); Bordetella Pertussis Not Detected (NotDetected); Chlamydophila Pneumoniae, PCR Not Detected (NotDetected); Coronavirus 19, PCR Not Detected (NotDetected); Coronavirus 229E Not Detected (NotDetected); Coronavirus NL63 Not Detected (NotDetected); Coronavirus OC43 Not Detected (NotDetected); Coronovirus HKU1,PCR Not Detected (NotDetected); Human Metapneumovirus Not Detected (NotDetected); Influenza A, PCR Not Detected (NotDetected); Influenza AH1, 2009 Not Detected (NotDetected); Influenza AH1, PCR Not Detected (NotDetected); Influenza AH3,PCR Not Detected (NotDetected); Influenza B, PCR Not Detected (NotDetected); Mycoplasma Pneumoniae, PCR Not Detected (NotDetected); Parainfluenza 1, PCR Not Detected (NotDetected); Parainfluenza 2, PCR Not Detected (NotDetected); Parainfluenza 3, PCR Not Detected (NotDetected); Parainfluenza 4, PCR Not Detected (NotDetected); Respiratory Syncytial Virus Not Detected (NotDetected)
[2021-02-16 12:43] LABS: Rhinovirus/Enterovirus Detected (NotDetected)
== END 2021-02-16 10:44 | disposition home or self-care (01) ==
PROVIDERS: Emergency Provider Nurse Practitioner Family; PCP Family Medicine
DX: J20.9 Acute bronchitis, unspecified (principal); J44.1 Chronic obstructive pulmonary disease with (acute) exacerbation; E11.9 Type 2 diabetes mellitus without complications; E03.9 Hypothyroidism, unspecified; I10 Essential (primary) hypertension; M79.7 Fibromyalgia; Z20.822 Contact with and (suspected) exposure to COVID-19
CPT/HCPCS: 71046; 87581; 87632; 87798; 96372; 99202; C9803; G0463; U0003; U0005

== ENCOUNTER → 2021-03-22 09:24 | Outpatient (CLI) | payer BC, SELFPAY ==
[2021-03-23 13:23] LABS: Covid-19 Nasal PCR Sendout Lex POSITIVE
== END ==
PROVIDERS: Visit Provider Nurse Practitioner
DX: U07.1 COVID-19 (principal)
CPT/HCPCS: C9803; U0004; U0005

== ENCOUNTER 2021-03-25 08:59 | Emergency (ER) | payer BC, SELFPAY ==
[2021-03-25 09:17] VITALS: BP 158/76; PULSE 87; RESP 16; TEMP 36.9; O2SAT 96; BMI 40.0
--- NOTE | 2021-03-25 09:48 | HMH.EDUTC ---
[facility] [place] Disposition Clinical Impression: COVID-19, Bronchitis Otitis media Qualifiers: Otitis media type: suppurative Chronicity: acute Laterality: bilateral Recurrence: non-recurrent Spontaneous tympanic membrane rupture: without spontaneous rupture Qualified Code(s): H66.003 - Acute suppurative otitis media without spontaneous rupture of ear drum, bilateral Disposition: Home, Self-Care Condition on Discharge: Good Instructions: Middle Ear Infection, DI for COVID-19 (Suspected or Confirmed ), Preventing the Spread of Coronavirus Discharge Instructions Additional Instructions: Drink plenty of fluids. Take tylenol or ibuprofen for pain or fever. Take the medications as directed. Follow up with your regular doctor. GO TO THE ER FOR ANY WORSENING SYMPTOMS The cough medication (promethazine dm) will make you drowsy, so don't drive or operate heavy machinery after taking it. Prescriptions: Promethazine/Dextromethorphan [Promethazine-Dm Syrup] 5 ml PO Q6HP PRN #240 ml PRN Reason: Cough Transmission Status: Received by [facility] methylPREDNISolone [Medrol] 4 mg PO DIRECTED 6 Days #21 packet Transmission Status: Received by [facility] guaiFENesin [Mucinex 600mg tablet] 1 - 2 tab PO BIDP PRN #30 tab PRN Reason: Congestion Transmission Status: Received by [facility] Azithromycin [Z-Jovan 250mg Tab*] 250 mg PO UD DOSE PK #6 tab Transmission Status: Received by [facility] Referrals: Juan Ramon Zhang MD [Primary Care Provider] - Time of Disposition: 09:53 Medical Decision Making - Medical Records Medical records reviewed: No: I reviewed the patient's medical records. - Gonzalo Inquiry Pt receiving controlled substance: No Vital Signs: 03/25/21 09:17 03/25/21 09:53 Temperature 98.5 F 98.5 F Temperature Source Oral Pulse Rate 87 Pulse Rate [Left] 87 Respiratory Rate 16 16 Blood Pressure 158/76 H Blood Pressure [Right Arm] 158/76 H Blood Pressure Mean [Right Arm] 103 02 Sat by Pulse Oximetry 96 - Lab Data Lab results reviewed: Yes: I reviewed the patient's lab results. [facility] [place] HPI - General Stated complaint: rt ear pain, cough, KHALIL, congestion Time Seen by Provider: 03/25/21 09:25 Mode of Arrival: Ambulatory Source of Information: Patient Limitations: No Limitations Description of Symptoms (Recalled from Triage Doc. by RN): pt c/o a cough, KHALIL and R ear ache. pt was positive for covid sometime last week. HEENT Symptoms (Recalled from RN notes): Yes Resp Symptoms (Recalled from RN notes): Yes Skin Symptoms (Recalled from RN notes): No MS Symptoms (Recalled from RN notes): No Functional Status (Recalled from RN notes): wnl - History of Present Illness Provider Complaint: She had covid-19 about 1 week ago. She is feeling better, but she continues to have a cough and right ear pain. She denies any fever for the past 7 days. - Related Data Home Medications Medication Instructions Recorded Confirmed dapagliflozin 5 mg tablet 5 mg PO QAM 07/20/17 06/27/18 gabapentin 300 mg capsule 300 mg PO BID 07/20/17 06/27/18 levocetirizine 5 mg tablet 5 mg PO QHS 07/20/17 06/27/18 olmesartan 20 mg-amlodipine 5 1 tab PO ONCE 07/20/17 06/27/18 mg-hydrochlorothiazide 12.5 mg tablet thyroid (pork) 30 mg tablet 30 mg PO ONCE 07/20/17 06/27/18 turmeric root extract 500 mg 1,000 mg PO BID 07/20/17 06/27/18 capsule Amitriptyline HCl [Elavil 10mg 10 mg PO DAILY 06/05/18 06/27/18 tablet] Chrm/Vineg/Bit-Orang Peel/Gr T 1 each PO DAILY 06/05/18 06/27/18 [Apple Cider Vinegar Plus Tb] Melatonin/Pyridoxine HCl (B6) 1 each PO DAILY 06/05/18 06/27/18 [Melatonin 3 mg Tablet] Saccharomyces Boulardii [Digestive 250 mg PO DAILY 06/05/18 06/27/18 Probiotic] Previous Rx's Medication Instructions Recorded Amoxicillin/Potassium Clav 1 tab PO Q12H 10 Days #20 tab 04/28/19 [Augmentin 875-125 Tablet] Fluconazole [Diflucan 150mg tab] 150 mg PO ONCE #1 tab 0
[2021-03-25 09:53] VITALS: BP 158/76; PULSE 87; RESP 16; TEMP 36.9
== END 2021-03-25 09:57 | disposition home or self-care (01) ==
PROVIDERS: Emergency Provider Nurse Practitioner Family; PCP Family Medicine
DX: U07.1 COVID-19 (principal); J20.9 Acute bronchitis, unspecified; E11.9 Type 2 diabetes mellitus without complications; E78.5 Hyperlipidemia, unspecified; I10 Essential (primary) hypertension; E03.9 Hypothyroidism, unspecified; Z79.899 Other long term (current) drug therapy
CPT/HCPCS: 99202; G0463

== ENCOUNTER → 2021-10-03 09:46 | Outpatient (CLI) | payer BC, SELFPAY ==
--- NOTE | 2021-10-03 09:50 | MM_ITS ---
PROCEDURE INFORMATION: Exam: MG Bilateral Screening 3D Mammography Exam date and time: 10/03/2021 9:44 AM Age: 55 years old Clinical indication: Screening examination TECHNIQUE: Imaging protocol: Bilateral Screening tomosynthesis and 2D mammography including computer-aided detection (CAD) when performed. COMPARISON: 1. MG MM DIG SCREENING MAMM BI W/CAD 08/04/2019 9:02 AM 2. MG DMSB DIG MAMM-SCREEN MARILYN W/CAD 08/26/2016 9:40 AM FINDINGS: MAMMOGRAPHY: Breast composition: The breasts are almost entirely fatty. Mass: None. Architectural distortion: None. Calcifications: No suspicious calcifications. Asymmetric density: None. Skin thickening: None. Axillary adenopathy: None. IMPRESSION: No mammographic evidence of malignancy. Annual screening is recommended unless otherwise clinically indicated. ASSESSMENT: BI-RADS Category 1: Negative
== END ==
PROVIDERS: PCP Family Medicine; Visit Provider Family Medicine
DX: Z12.31 Encounter for screening mammogram for malignant neoplasm of breast (principal)
CPT/HCPCS: 77063; 77067

== ENCOUNTER 2021-12-08 11:17 | Emergency (ER) | payer BC, SELFPAY ==
[2021-12-08 12:05] VITALS: BP 140/75; PULSE 98; RESP 19; TEMP 36.6; O2SAT 98; BMI 39.5
--- NOTE | 2021-12-08 12:09 | XR_ITS ---
PROCEDURE INFORMATION: Exam: XR Right Knee Exam date and time: 12/08/2021 12:08 PM Age: 56 years old Clinical indication: Pain; Knee; Right; Additional info: Fall TECHNIQUE: Imaging protocol: Radiologic exam of the Right knee. Views: 3 views. COMPARISON: No relevant prior studies available. FINDINGS: Bones/joints: There are mild degenerative changes of the knee joint, predominantly involving the medial joint compartment. There is no evidence of acute fracture. There is no evidence of joint malalignment or dislocation. Soft tissues: No focal soft tissue swelling. IMPRESSION: 1. There are mild degenerative changes of the knee joint, predominantly involving the medial joint compartment. 2. No evidence of acute fracture. 3. No evidence of acute dislocation.
--- NOTE | 2021-12-08 13:01 | EXP.UTC ---
Discharge Plan Disposition Patient Disposition: Home, Self-Care Condition: Good Prescriptions Prescriptions: No Action dapagliflozin [Farxiga] 5 mg tablet 5 mg PO QAM turmeric root extract 500 mg capsule 1,000 mg PO BID levocetirizine [Xyzal] 5 mg tablet 5 mg PO QHS thyroid (pork) [Stanley Thyroid] 30 mg tablet 30 mg PO ONCE gabapentin 300 mg capsule 300 mg PO BID mfduhwvcpy-gqbrtfodp-agdekjtpv [Tribenzor] 20-5-12.5 mg tablet 1 tab PO ONCE promethazine-DM 120 ML syrup 5 ml PO Q6HP PRN (Reason: Cough) Qty: 240 0RF methylprednisolone 4 MG tablets,dose pack 4 mg PO DIRECTED 6 Days Qty: 21 0RF amoxicillin-pot clavulanate 1 EACH tablet 1 tab PO Q12H 10 Days Qty: 20 0RF guaifenesin 600 MG tablet extended release 12hr 1 - 2 tab PO BIDP PRN (Reason: Congestion) Qty: 30 0RF amitriptyline 10 MG tablet 10 mg PO DAILY melatonin-pyridoxine HCl (B6) 1 EACH tablet 1 each PO DAILY Saccharomyces boulardii 250 MG capsule 250 mg PO DAILY juan wxpxba-Hr-mboHfdndxeng-tea 1 EACH tablet 1 each PO DAILY prednisone 10 MG tablet 10 mg PO BID 3 Days Qty: 6 0RF ondansetron 4 MG tablet,disintegrating 4 mg PO Q8HP PRN (Reason: Nausea) Qty: 10 0RF amoxicillin-pot clavulanate 1 EACH tablet 1 tab PO Q12H 10 Days Qty: 20 0RF fluconazole 150 MG tablet 150 mg PO ONCE Qty: 1 2RF prednisone 10 MG tablet 10 mg PO BID 5 Days Qty: 10 0RF fluticasone propionate 120 SPR/BOT bottle 1 spr NS DAILY Qty: 1 0RF Rx Instructions: each nostril daily amoxicillin-pot clavulanate 1 EACH tablet 1 tab PO Q12H 10 Days Qty: 20 0RF oxycodone-acetaminophen 1 EACH tablet 1 tab PO Q6HP PRN (Reason: Moderate To Severe Pain) Qty: 10 0RF promethazine-DM 120 ML syrup 5 ml PO Q6HP PRN (Reason: Cough) Qty: 240 0RF azithromycin 250 MG tablet 250 mg PO UD DOSE PK Qty: 6 0RF Rx Instructions: Take two (2) tablets today, then one (1) tablet days #2 thru #5 methylprednisolone 4 MG tablets,dose pack 4 mg PO DIRECTED 6 Days Qty: 21 0RF guaifenesin 600 MG tablet extended release 12hr 1 - 2 tab PO BIDP PRN (Reason: Congestion) Qty: 30 0RF Referrals Follow up/Referrals: Griffin Lara DO [Staff Physician] - See instructions Chetna Ferguson APRN [Primary Care Provider] - See instructions Activity Restrictions/Add. Instructions Additional Instructions/Restrictions: *weight bearing as tolerated *RICE, Rest the extremity, Ice 15-20 minutes 3-4 times daily, Compress- wear the srikanth wrap as discussed as much as possible to help reduce swelling and pain, Elevate the extremity when at rest *Srikanth wrap is for support and help control swelling, use it except in the shower. Be sure that is not to tight but not to loose either *Elevate when resting? ?*Ibuprofen 600-800mg every 6-8 hours as needed for pain an inflammation if you can take it. If need something more can take Tylenol in between doses of Ibuprofen to help Immediately follow up with your family doctor for new or worsening of symptoms, or no noticeable improvement over the next 3-5 days Follow up with Orthopedics if pain persists? Clinical Impressions Clinical Impression: Knee sprain Instructions Patient Instructions: How To Perform RICE (Rest, Ice, Compress, Elevate), Knee Sprain Discharge ED Provider: Mayelin Parekh [facility] [place] HPI General Stated complaint: AO 12/05@home@2230 pain in Rt knee Mode of Arrival: Ambulatory Source of Information: Patient Limitations: No Limitations Time Seen by Provider: 12/08/21 13:01 Description of Symptoms (Recalled from Triage Doc. by RN): PATIENT C/O PAIN TO RIGHT KNEE/LEG AFTER FALLING ON FRIDAY HEENT Symptoms (Recalled from RN notes): No Resp Symptoms (Recalled from RN notes): No Skin Symptoms (Recalled from RN notes): No MS Symptoms (Recalled from RN notes): Yes Functional Status (Recalled from RN notes): WNL History
[2021-12-08 13:33] VITALS: BP 140/75; PULSE 98; RESP 19; TEMP 36.6; O2SAT 98
== END 2021-12-08 13:35 | disposition home or self-care (01) ==
PROVIDERS: Emergency Provider Nurse Practitioner; PCP Nurse Practitioner Family
DX: M25.561 Pain in right knee (principal); S83.91XA Sprain of unspecified site of right knee, initial encounter; W19.XXXA Unspecified fall, initial encounter; Y92.009 Unspecified place in unspecified non-institutional (private) residence as the place of occurrence of the external cause
CPT/HCPCS: 73562; 99213; G0463

== ENCOUNTER → 2022-01-03 10:11 | Outpatient (CLI) | payer BC, SELFPAY ==
--- NOTE | 2022-01-03 10:17 | MR_ITS ---
FINAL REPORT CLINICAL HISTORY: INJURY OF RIGHT KNEE, UNSTABLE RIGHT KNEE. SWELLING OF JOINT fall x 1 month ago swelling hurts when full weight is on leg FINDINGS: Multi planar MR imaging was performed of the right knee. The anterior and posterior cruciate ligaments are intact. The quadriceps and patellar tendons are intact. There is a complex tear involving the anterior horn of the lateral meniscus. The medial meniscus is intact. The medial and lateral collateral ligaments appear intact. The medial and lateral retinacula appear intact. There are multiple osteochondral lesions along the undersurface of the patella measuring up to 1.2 cm in greatest dimension. There is a small to moderate joint effusion. There is a large popliteal cyst measuring 7.2 cm in greatest dimension. There are small osteochondral lesions along the articular surface of the medial femoral condyle with osteophytes at the joint margin. No evidence of soft tissue inflammatory reaction. IMPRESSION: Complex tear anterior horn lateral meniscus. Large popliteal cyst. Small osteochondral lesions of the medial femoral condyle. Reviewed, Interpreted and Dictated by Warner Hernandez MD Transcribed by Lor Kaur Authenticated and [facility]
== END ==
PROVIDERS: PCP Nurse Practitioner Family; Visit Provider Nurse Practitioner Family
DX: M25.561 Pain in right knee (principal); S89.91XA Unspecified injury of right lower leg, initial encounter; M25.361 Other instability, right knee; M25.461 Effusion, right knee
CPT/HCPCS: 73721

== ENCOUNTER → 2022-05-01 13:24 | Outpatient (CLI) | payer BC, SELFPAY ==
[2022-05-05 16:03] LABS: D001-IgE D pteronyssinus <0.10 kU/L (Class 0); D002-IgE D farinae <0.10 kU/L (Class 0); E001-IgE Cat Dander <0.10 kU/L (Class 0); E005-IgE Dog Dander <0.10 kU/L (Class 0); E072-IgE Mouse Urine <0.10 kU/L (Class 0); G002-IgE Bermuda Grass <0.10 kU/L (Class 0); G006-IgE Timothy Grass <0.10 kU/L (Class 0); I006-IgE Cockroach, German <0.10 kU/L (Class 0); Immunoglobulin E, Total 198 IU/mL (6-495); M001-IgE Penicillium chrysogen <0.10 kU/L (Class 0); M002-IgE Cladosporium herbarum <0.10 kU/L (Class 0); M003-IgE Aspergillus fumigatus <0.10 kU/L (Class 0); M006-IgE Alternaria alternata <0.10 kU/L (Class 0); T001-IgE Maple/Box Elder <0.10 kU/L (Class 0); T003-IgE Common Silver Birch <0.10 kU/L (Class 0); T006-IgE Cedar, Mountain <0.10 kU/L (Class 0); T007-IgE Oak, White <0.10 kU/L (Class 0); T008-IgE Elm, American <0.10 kU/L (Class 0); T010-IgE Walnut <0.10 kU/L (Class 0); T011-IgE Maple Leaf Sycamore <0.10 kU/L (Class 0); T014-IgE Cottonwood <0.10 kU/L (Class 0); T015-IgE Ash, White <0.10 kU/L (Class 0); T022-IgE Pecan, Hickory <0.10 kU/L (Class 0); T070-IgE White Mulberry <0.10 kU/L (Class 0); W001-IgE Ragweed, Short <0.10 kU/L (Class 0); W011-IgE Thistle, Russian <0.10 kU/L (Class 0); W014-IgE Pigweed, Common <0.10 kU/L (Class 0); W018-IgE Sheep Sorrel <0.10 kU/L (Class 0)
== END ==
PROVIDERS: PCP Family Medicine; Referring Provider Nurse Practitioner Family; Visit Provider Otolaryngology
DX: J02.9 Acute pharyngitis, unspecified (principal)
CPT/HCPCS: 36415; 82785; 86003; 87070

== ENCOUNTER → 2022-05-03 06:55 | Outpatient (CLI) | payer BC, SELFPAY ==
--- NOTE | 2022-05-03 07:08 | CT_ITS ---
FINAL REPORT TECHNIQUE: Thin section axial CT images of the facial bones and sinuses were obtained without contrast. Coronal reformatted images were also obtained.This study was performed with techniques to keep radiation doses as low as reasonably achievable, (ALARA). Individualized dose reduction techniques using automated exposure control or adjustment of mA and/or kV according to the patient''''s size were employed. CLINICAL HISTORY: sinusitis FINDINGS: There is mild left maxillary mucosal thickening. No fluid levels are identified. The ostiomeatal units have an unremarkable appearance. The nasal septum is in the midline. No fracture or acute bony abnormality is identified. IMPRESSION: Mild left maxillary mucosal thickening, otherwise unremarkable exam. Reviewed, Interpreted and Dictated by Houston Lee III, MD Transcribed by Ceci Schwartz Authenticated and [facility]
== END ==
PROVIDERS: PCP Family Medicine; Visit Provider Otolaryngology
DX: J01.90 Acute sinusitis, unspecified (principal)
CPT/HCPCS: 70486

== ENCOUNTER → 2022-11-05 23:17 | Outpatient (CLI) | payer BC, SELFPAY ==
[2022-11-05 17:16] LABS: Magnesium 2.1 mg/dl (1.6-2.3)
[2022-11-05 17:38] LABS: Alanine Aminotransferase 32 U/L (12-78); Albumin Level 4.7 g/dl (3.5-5.0); Albumin/Globulin Ratio 1.6 (1.1-1.8); Alkaline Phosphatase 89 U/L (38-126); Anion Gap 16.9 mEq/L (5-15); Aspartate Amino Transferase 29 U/L (14-36); Bilirubin,Total 0.8 mg/dl (0.2-1.3); Blood Urea Nitrogen 12 mg/dl (7-17); Calcium 9.9 mg/dl (8.4-10.2); Carbon Dioxide 28 mmol/L (22.0-30.0); Chloride 99 mmol/L (98-107); Cholesterol 296 mg/dl (140-200); Estimated Glomerular Filt Rate 104 ml/min (>60); GFR (African American) 126 ML/MIN (>60); Glucose 132 mg/dl (74-100); HDL Cholesterol 42 mg/dl (40-60); Potassium 4.9 mmoL/L (3.5-5.1); Sodium 139 mmol/L (136-145); Total Protein,Serum 7.7 g/dl (6.3-8.2)
[2022-11-05 17:43] LABS: Triglycerides 477 mg/dl (30-150)
[2022-11-05 17:44] LABS: Basophils % 0.7 % (0.1-2.0); Eosinophils # 0.2 K/mm3 (0.0-0.4); Eosinophils % 4.7 % (0.1-12.0); Hematocrit 48.7 % (37.0-47.0); Hemoglobin 15.6 g/dL (12.2-16.2); Lymphocytes # 1.9 K/mm3 (0.7-4.5); Lymphocytes % 35.5 % (10-50); Mean Corpuscular Hemoglobin 29.6 pg (27.0-31.2); Mean Corpuscular Volume 92.5 fl (81-99); Mean Platelet Volume 9.1 fl (7.4-10.4); Monocytes # 0.4 K/mm3 (0.1-1.0); Neutrophils # 2.7 K/mm3 (1.8-7.8); Neutrophils % 52.1 % (37.0-80.0); Platelet Count 304 K/mm3 (142-424); Red Blood Count 5.27 M/mm3 (4.20-5.40); Red Cell Distribution Width 14.3 % (11.5-17.5); White Blood Count 5.2 K/mm3 (4.8-10.8)
[2022-11-05 18:08] LABS: Thyroid Stimulating Hormone 0.58 uIU/mL (0.465-4.68)
[2022-11-05 18:11] LABS: Ferritin 255 ng/ml (11.1-264)
[2022-11-05 18:28] LABS: Vitamin B12 398 pg/mL (239-931)
[2022-11-07 09:15] LABS: Thyroid Peroxidase Antibodies 47 IU/mL (0-34); Triiodothyronine (T3) Free 3.5 pg/mL (2.0-4.4)
[2022-11-07 16:12] LABS: Thyroglobulin Level 6.2 IU/mL (0.0-0.9)
[2022-11-11 12:46] LABS: Triiodothyronine (T3) Reverse 22.3
[2022-11-14 19:50] LABS: 1,25 Dihydroxy Vitamin D 62 pg/mL (.); 1,25-Dihydroxy, Vitamin D-2 <10 pg/mL (.); 1,25-Dihydroxy, Vitamin D-3 57 pg/mL (.)
== END ==
PROVIDERS: PCP Nurse Practitioner Family; Visit Provider Nurse Practitioner Family
DX: E06.3 Autoimmune thyroiditis (principal); E78.5 Hyperlipidemia, unspecified; I10 Essential (primary) hypertension; Z86.2 Personal history of diseases of the blood and blood-forming organs and certain disorders involving the immune mechanism; E11.9 Type 2 diabetes mellitus without complications; G25.81 Restless legs syndrome; R79.89 Other specified abnormal findings of blood chemistry; M79.7 Fibromyalgia
CPT/HCPCS: 80053; 80061; 82607; 82652; 82728; 83735; 84436; 84443; 84481; 84482; 85025; 86376; 86800

== ENCOUNTER → 2022-11-13 08:46 | Outpatient (CLI) | payer BC, SELFPAY ==
--- NOTE | 2022-11-13 08:46 | US_ITS ---
FINAL REPORT CLINICAL HISTORY: goiter COMPARISON: None FINDINGS: THYROID ULTRASOUND: The right lobe of the thyroid measures 4.3 x 1.5 x 1.4 cm in size. The left lobe of the thyroid gland measures 3.1 x 0.6 x 1 cm in size. The isthmus measures 4 mm in thickness. The echotexture of the thyroid is heterogeneous, compatible with the patient's clinical history of thyroiditis. There is a focal nodule seen in the lower pole of the left lobe of the thyroid, which measures 1.4 cm in diameter. This nodule is hyperechoic, solid, and a TI-RADS 3 category nodule. IMPRESSION: Small heterogeneous thyroid gland, compatible with the patient's clinical history of thyroiditis. Focal nodule lower pole left lobe of the thyroid, which measures 1.4 cm in diameter. This TI-RADS category 3 nodule does not require follow-up. Reviewed, Interpreted and Dictated by Warner Hernandez MD Transcribed by Lazara Castro Authenticated and [facility]
== END ==
PROVIDERS: PCP Nurse Practitioner Family; Visit Provider Nurse Practitioner Family
DX: E06.3 Autoimmune thyroiditis (principal)
CPT/HCPCS: 76536

== ENCOUNTER 2022-12-06 18:33 | Emergency (ER) | payer BC, SELFPAY ==
[2022-12-06 18:33] VITALS: BP 131/86; PULSE 78; RESP 18; TEMP 36.9; O2SAT 100; BMI 39.5
--- OUTSIDE RECORDS SUMMARY | 2022-12-06 18:35 | XMS_ITS ---
Care Plan - [facility] Created on: December 06, 2022 Joselin Hernandez : 1965 Sex: Female Author Name Unknown Address [address] [place] [address] Phone Organization [facility] Address [address] [place] [address] Phone Care Team Providers Care Litigation Manager Name Role Phone RADHA GILL Unavailable [phone] Marco SHORT, Raghav Banda Unavailable [phone] ANTWON CASTILLO MD Primary Care Provider [phone]
--- OUTSIDE RECORDS SUMMARY | 2022-12-06 18:35 | XMS_ITS | Clinical Summary ---
Author Name Unknown Address [address] [place] [address] Phone Organization [facility] Address [address] [place] [address] Phone Care Team Providers Care Analytics Developer Name Role Phone RADHA GILL Unavailable [phone] Marco SHORT, Raghav Banda Unavailable [phone] ANTWON CASTILLO MD Primary Care Provider [phone] Reason for Visit and Chief Complaint The Chief Complaint is: RT TKA POV Problems Includes: Problems addressed during this encounter and other active Problems All Visits Onset Date Resolved Date Provider Condition S tatus History of Joint Pain in the Right Knee 01/15/2022 Fiona Loo PA-C Active Plan of Treatment Instructions to patient Lose weight Last Documented On 9:53AM ; [facility] Assessments Includes: Assessments from this encounter Findings - Overweight - Last Documented On 12/06/2022 9:29AM ; [facility] Instructions Includes: Instructions from this encounter Instructions to patient
--- OUTSIDE RECORDS SUMMARY | 2022-12-06 18:35 | XMS_ITS ---
Author Name Unknown Address [address] [place] [address] Phone Organization [facility] Address [address] [place] [address] Phone Care Team Providers Care Slab Tripper Name Role Phone RADHA GILL Unavailable [phone] Marco SHORT, Raghav Banda Unavailable [phone] ANNA SHORT, [place] Primary Care Provider [phone] Reason for Referral Date Encounter Description Provider Reason for Referral 02/12/22 Follow Up Justin Leigh MD Referral To Physician 04/20/20 Post Op Raghav Lara MD Referral To Physician - see pcp for bp 03/22/20 Post Op Raghav Lara MD Referral To Physician - see pcp for bp Problems Includes: Active, inactive, and resolved Problems All Visits Onset Date Resolved Date Provider Condition S tatus History of Joint Pain in the Right Knee 01/15/2022 Fiona Loo PA-C Active Plan of Treatment Instructions to patient Lose weight Last Documented On 3 9:53AM ; [facility], [facility] Lose weight Last Documented On
--- OUTSIDE RECORDS SUMMARY | 2022-12-06 18:36 | XMS_ITS | Clinical Summary ---
Author Name Unknown Address [address] [place] [address] Phone Organization [facility] , [facility] Address [address] [place] [address] Phone Care Team Providers Care Farm Equipment Maintenance Supervisor Name Role Phone RADHA GILL Unavailable [phone] Marco SHORT, Raghav Banda Unavailable [phone] ANNA SHORT, ANTWON Primary Care Provider [phone] Reason for Visit and Chief Complaint [facility] Problems Includes: Problems addressed during this encounter and other active Problems All Visits Onset Date Resolved Date Provider Condition S tatus History of Joint Pain in the Right Knee 01/15/2022 Finoa Loo PA-C Active Plan of Treatment No Plan of Treatment Recorded Assessments Includes: Assessments from this encounter No Assessments Recorded Medical Equipment - Implanted Devices Includes: Current Devices No Medical Equipment Recorded Medications Includes: Medications discussed during this encounter and other current Medications Current Medications (continue as prescribed) Amitriptyline HCl 10 MG Oral Tablet 01/05/2022 Provi sanaz: RADHA GILL Diagnosis: Latanoprost 0.005% Ophthalmic Solution 01/05/2022 Pr ovider:
--- OUTSIDE RECORDS SUMMARY | 2022-12-06 18:36 | XMS_ITS | Clinical Summary ---
Author Name Unknown Address [address] [place] [address] Phone Organization [facility] , [facility] Address [address] [place] [address] Phone Care Team Providers Care Audio Video Repairer Name Role Phone RADHA GILL Unavailable [phone] Marco SHORT, Raghav Banda Unavailable [phone] ANNA SHORT, ANTWON Primary Care Provider [phone] Reason for Visit and Chief Complaint The Chief Complaint is: RT TKA POV Problems Includes: Problems addressed during this encounter and other active Problems All Visits Onset Date Resolved Date Provider Condition S tatus History of Joint Pain in the Right Knee 01/15/2022 Fiona Loo PA-C Active Plan of Treatment Instructions to patient Lose weight Last Documented On 3 10:13AM ; [facility], [facility] Assessments Includes: Assessments from this encounter No Assessments Recorded Instructions Includes: Instructions from this encounter Instructions to patient Lose weight Last Documented On 3 10:13AM ; [facility], [facility] Medical Equipment - Implanted Devices Includes: Current Devices No Medical Equipment Recorded Medications Includes: Medications discussed during this encounter and other current Medications
--- OUTSIDE RECORDS SUMMARY | 2022-12-06 18:36 | XMS_ITS | Clinical Summary ---
Author Name Unknown Address [address] [place] [address] Phone Organization [facility] , [facility] Address [address] [place] [address] Phone Care Team Providers Care Senior Sales Operations Analyst Name Role Phone RADHA GILL Unavailable [phone] Marco SHORT, Raghav Banda Unavailable [phone] ANTWON CASTILLO MD Primary Care Provider [phone] Reason for Visit and Chief Complaint The Chief Complaint is: RT TKA POV Problems Includes: Problems addressed during this encounter and other active Problems All Visits Onset Date Resolved Date Provider Condition S tatus History of Joint Pain in the Right Knee 01/15/2022 Fiona Loo PA-C Active Plan of Treatment Instructions to patient Lose weight Last Documented On 10:18AM ; [facility], [facility] Assessments Includes: Assessments from this encounter Findings Right total knee replacement June 05, 2022 - Last Documented On 07/23/2022 9:24AM ; [facility] Instructions Includes: Instructions from this encounter Instructions to patient Lose weight Last Documented On 10:18AM ; [facility]
--- OUTSIDE RECORDS SUMMARY | 2022-12-06 18:36 | XMS_ITS | Clinical Summary ---
Author Name Unknown Address [address] [place] [address] Phone Organization [facility] , [facility] Address [address] [place] [place] [address] Phone Care Team Providers Care Snack Stewardess Name Role Phone RADHA GILL Unavailable [phone] Marco SHORT, Raghav Banda Unavailable [phone] ANNA SHORT, ANTWON Primary Care Provider [phone] Reason for Visit and Chief Complaint The Chief Complaint is: RT TKA POV Problems Includes: Problems addressed during this encounter and other active Problems All Visits Onset Date Resolved Date Provider Condition S tatus History of Joint Pain in the Right Knee 01/15/2022 Fiona Loo PA-C Active Plan of Treatment Patient was seen by myself Remy Jensen PA-C. Patient will follow up [address] Lara repeat right knee x-rays we will give her new prescription for some pain medicine in terms of driving she needs to be off pain medicine to be able to get enough motion to get in and out of the collar and be able to tolerate moving the brake and gas appropriately she might need a few more weeks to be able to do that she is scheduled to start outpatient therapy tomorrow - Last Documented On 06/21/2022 12:27PM ; [facility] Pending Tests Order Diagnosis Results Due Ordering P rovider Therapy - Physical Therapy Knee 06/19/22 Remy Jensen PA-C Instructions to patient
--- NOTE | 2022-12-06 18:51 | EXP.UTC ---
Discharge Plan Disposition Patient Disposition: Home, Self-Care Condition: Good Prescriptions Prescriptions: New amoxicillin [amoxicillin] 875 mg tablet 875 mg PO Q12H Qty: 20 0RF methylprednisolone 4 mg Tablets,Dose Pack 4 mg PO DIRECTED Qty: 21 0RF ondansetron 4 mg Tablet,Disintegrating 4 mg PO Q8H PRN (Reason: Nausea) Qty: 12 0RF No Action turmeric root extract 500 mg capsule 1,000 mg PO BID levocetirizine [Xyzal] 5 mg tablet 5 mg PO QHS azithromycin [Zithromax Z-Jovan] 250 mg tablet See Rx Instructions PO .COMPLEX Qty: 6 0RF Rx Instructions: For 250 mg dose pack: take 500 mg today (day 1), then 250 mg for 4 days (days 2-5) PO selenium 200 mcg capsule 200 mcg PO DAILY latanoprost 0.005 % drops 1 drp Eye-Both magnesium chloride 64 mg tablet extended release 64 mg PO DAILY PRN omega-3 fatty acids 1,000 mg capsule 1,000 mg PO DAILY multivitamin Tablet 1 tab PO DAILY glucosamine-chondroitin 900 mg tablet PO Patient Comments: patient doesn't know the dose. amitriptyline 10 mg tablet 10 mg PO DAILY 30 Days Qty: 30 6RF Farxiga 5 mg tablet 5 mg PO QAM 30 Days Qty: 30 6RF dicyclomine 10 mg capsule 10 mg PO BID 30 Days Qty: 60 6RF fluticasone propionate 50 mcg/actuation spray,suspension 2 spray intranasal DAILY PRN (Reason: allergy symptoms) 30 Days Qty: 16 6RF gabapentin 400 mg capsule 400 mg PO BID 30 Days Qty: 60 2RF mtwmhvkozq-ujybzolul-ohugmpbwf 40-5-12.5 mg tablet 1 tab PO DAILY 30 Days Qty: 30 6RF montelukast 10 mg tablet 10 mg PO DAILY 30 Days Qty: 30 6RF levothyroxine 175 mcg tablet 175 mcg PO DAILY 30 Days Qty: 30 5RF Referrals Follow up/Referrals: Cecil Freitas DO [Primary Care Provider] - See instructions Activity Restrictions/Add. Instructions Additional Instructions/Restrictions: Drink plenty of fluids. Take tylenol or ibuprofen for pain or fever. Take the medications as directed. Follow up with your regular doctor. GO TO THE ER FOR ANY WORSENING SYMPTOMS Clinical Impressions Clinical Impression: Otitis media, Vertigo Instructions Patient Instructions: Middle Ear Infection, DI for Vertigo Discharge ED Provider: Harris Partida [facility] General Stated complaint: dizzy, h/a Time Seen by Provider: 12/06/22 18:51 History of Present Illness Provider Complaint: She states that for the past 4 days she has had ear pain, intermittent dizziness and head ache. Related Data Home Medications Medication Instructions Recorded Confirmed levocetirizine 5 mg tablet (Xyzal) 5 mg PO QHS allergies 07/20/17 11/19/22 turmeric root extract 500 mg 1,000 mg PO BID Supplement 07/20/17 11/19/22 capsule latanoprost 0.005 % eye drops 1 drp Eye-Both 05/01/22 11/19/22 antiarthritic combination no.2 900 mg PO 11/05/22 11/19/22 mg tablet (glucosamine-chondroitin) magnesium chloride 64 mg 64 mg PO DAILY PRN 11/05/22 11/19/22 tablet,extended release multivitamin 1 tab PO DAILY 11/05/22 11/19/22 omega-3 fatty acids 1,000 mg 1,000 mg PO DAILY 11/05/22 11/19/22 capsule selenium 200 mcg capsule 200 mcg PO DAILY 11/19/22 11/19/22 Previous Rx's Medication Instructions Recorded amitriptyline 10 mg tablet 10 mg PO DAILY h/a 30 days #30 tabs 11/05/22 dapagliflozin propanediol 5 mg 5 mg PO QAM Diabetes 30 days #30 11/05/22 tablet (Farxiga) tabs dicyclomine 10 mg capsule 10 mg PO BID 30 days #60 caps 11/05/22 fluticasone propionate 50 2 spray intranasal DAILY PRN 11/05/22 mcg/actuation nasal allergy symptoms 30 days #16 grams spray,suspension gabapentin 400 mg capsule 400 mg PO BID 30 days #60 caps 11/05/22 levothyroxine 175 mcg tablet 175 mcg PO DAILY 30 days #30 tabs 11/05/22 montelukast 10 mg tablet 10 mg PO DAILY 30 days #30 tabs 11/05/22 olmesartan 40 mg-amlodipine 5 1 tab PO DAILY 30 days #30 tabs 11/05/22 mg-hydrochlorothiazide 12.5 mg tablet
[2022-12-06 19:30] VITALS: BP 131/86; PULSE 78; RESP 18; TEMP 36.9; O2SAT 100
== END 2022-12-06 19:30 | disposition home or self-care (01) ==
PROVIDERS: Emergency Provider Nurse Practitioner Family; PCP Internal Medicine
DX: H66.93 Otitis media, unspecified, bilateral (principal); R42 Dizziness and giddiness; R51.9 Headache, unspecified; E11.9 Type 2 diabetes mellitus without complications; I10 Essential (primary) hypertension; E78.5 Hyperlipidemia, unspecified; E03.9 Hypothyroidism, unspecified; G25.81 Restless legs syndrome; L40.50 Arthropathic psoriasis, unspecified; Z79.84 Long term (current) use of oral hypoglycemic drugs
CPT/HCPCS: 99212; 99214; G0463

== ENCOUNTER → 2022-12-25 09:58 | Outpatient (CLI) | payer BC, SELFPAY ==
--- NOTE | 2022-12-25 09:59 | MM_ITS ---
PROCEDURE INFORMATION: Exam: MG Bilateral Screening 3D Mammography Exam date and time: 12/25/2022 10:01 AM Age: 57 years old Clinical indication: Screening examination TECHNIQUE: Imaging protocol: Bilateral Screening tomosynthesis and 2D mammography including computer-aided detection (CAD) when performed. COMPARISON: No relevant prior studies available. FINDINGS: MAMMOGRAPHY: Breast composition: The breasts are almost entirely fatty. Mass: None. Architectural distortion: None. Calcifications: No suspicious calcifications. Asymmetric density: None. Skin thickening: None. Axillary adenopathy: None. IMPRESSION: No mammographic evidence of malignancy. Annual screening is recommended unless otherwise clinically indicated. ASSESSMENT: BI-RADS Category 1: Negative
== END ==
PROVIDERS: PCP Internal Medicine; Visit Provider Internal Medicine
DX: Z12.31 Encounter for screening mammogram for malignant neoplasm of breast (principal)
CPT/HCPCS: 77063; 77067

== ENCOUNTER 2023-01-11 10:03 | Emergency (ER) | payer BC, SELFPAY ==
[2023-01-11 10:10] VITALS: BP 136/109; PULSE 104; RESP 21; TEMP 36.9; O2SAT 95; BMI 39.5
--- NOTE | 2023-01-11 10:12 | EXP.UTC ---
Discharge Plan Disposition Patient Disposition: Home, Self-Care Prescriptions Prescriptions: New prednisone 10 mg tablet 10 mg PO DIRECTED 9 Days Qty: 21 0RF Rx Instructions: Take 4 tablets daily for 3 days, then take 2 tablets daily for 3 days, then take 1 tablet daily for 3 days, then stop. benzonatate [benzonatate] 100 mg capsule 100 mg PO TIDP PRN (Reason: Cough) Qty: 30 0RF cefdinir 300 mg capsule 300 mg PO BID Qty: 20 0RF No Action turmeric root extract 500 mg capsule 1,000 mg PO BID levocetirizine [Xyzal] 5 mg tablet 5 mg PO QHS azithromycin [Zithromax Z-Jovan] 250 mg tablet See Rx Instructions PO .COMPLEX Qty: 6 0RF Rx Instructions: For 250 mg dose pack: take 500 mg today (day 1), then 250 mg for 4 days (days 2-5) PO selenium 200 mcg capsule 200 mcg PO DAILY latanoprost 0.005 % drops 1 drp Eye-Both magnesium chloride 64 mg tablet extended release 64 mg PO DAILY PRN omega-3 fatty acids 1,000 mg capsule 1,000 mg PO DAILY multivitamin Tablet 1 tab PO DAILY glucosamine-chondroitin 900 mg tablet PO Patient Comments: patient doesn't know the dose. amitriptyline 10 mg tablet 10 mg PO DAILY 30 Days Qty: 30 6RF Farxiga 5 mg tablet 5 mg PO QAM 30 Days Qty: 30 6RF dicyclomine 10 mg capsule 10 mg PO BID 30 Days Qty: 60 6RF fluticasone propionate 50 mcg/actuation spray,suspension 2 spray intranasal DAILY PRN (Reason: allergy symptoms) 30 Days Qty: 16 6RF gabapentin 400 mg capsule 400 mg PO BID 30 Days Qty: 60 2RF moftgntnsk-qckgglhhw-rzxetpesc 40-5-12.5 mg tablet 1 tab PO DAILY 30 Days Qty: 30 6RF montelukast 10 mg tablet 10 mg PO DAILY 30 Days Qty: 30 6RF levothyroxine 175 mcg tablet 175 mcg PO DAILY 30 Days Qty: 30 5RF amoxicillin [amoxicillin] 875 mg tablet 875 mg PO Q12H Qty: 20 0RF methylprednisolone 4 mg Tablets,Dose Pack 4 mg PO DIRECTED Qty: 21 0RF ondansetron 4 mg Tablet,Disintegrating 4 mg PO Q8H PRN (Reason: Nausea) Qty: 12 0RF Referrals Follow up/Referrals: Cecil Freitas DO [Primary Care Provider] - See instructions Activity Restrictions/Add. Instructions Additional Instructions/Restrictions: Drink plenty of fluids. Take tylenol or ibuprofen for pain or fever. Take the medications as directed. Follow up with your regular doctor. GO TO THE ER FOR ANY WORSENING SYMPTOMS Don't start the oral steroids (prednisone) until tomorrow, since you had the shot here today. Clinical Impressions Clinical Impression: Sinusitis, Bronchitis Instructions Patient Instructions: Sinusitis, DI for Sinusitis, Dexamethasone Injection Discharge ED Provider: Harris Partida [facility] General Stated complaint: cough, congestion, h/a Time Seen by Provider: 01/11/23 10:12 History of Present Illness Provider Complaint: She states that she has had sinus congestion for the past 2 days. Related Data Home Medications Medication Instructions Recorded Confirmed levocetirizine 5 mg tablet (Xyzal) 5 mg PO QHS allergies 07/20/17 11/19/22 turmeric root extract 500 mg 1,000 mg PO BID Supplement 07/20/17 11/19/22 capsule latanoprost 0.005 % eye drops 1 drp Eye-Both 05/01/22 11/19/22 antiarthritic combination no.2 900 mg PO 11/05/22 11/19/22 mg tablet (glucosamine-chondroitin) magnesium chloride 64 mg 64 mg PO DAILY PRN 11/05/22 11/19/22 tablet,extended release multivitamin 1 tab PO DAILY 11/05/22 11/19/22 omega-3 fatty acids 1,000 mg 1,000 mg PO DAILY 11/05/22 11/19/22 capsule selenium 200 mcg capsule 200 mcg PO DAILY 11/19/22 11/19/22 Previous Rx's Medication Instructions Recorded amitriptyline 10 mg tablet 10 mg PO DAILY h/a 30 days #30 tabs 11/05/22 dapagliflozin propanediol 5 mg 5 mg PO QAM Diabetes 30 days #30 11/05/22 tablet (Farxiga) tabs dicyclomine 10 mg capsule 10 mg PO BID 30 days #60 caps 11/05/22 fluticasone prop
[2023-01-11 10:27] VITALS: BP 136/109; PULSE 104; RESP 21; TEMP 36.9; O2SAT 95
== END 2023-01-11 10:49 | disposition home or self-care (01) ==
PROVIDERS: Emergency Provider Nurse Practitioner Family; PCP Internal Medicine
DX: J20.9 Acute bronchitis, unspecified (principal); J01.90 Acute sinusitis, unspecified; R51.9 Headache, unspecified; E11.9 Type 2 diabetes mellitus without complications; I10 Essential (primary) hypertension; E78.5 Hyperlipidemia, unspecified; E03.9 Hypothyroidism, unspecified; L40.50 Arthropathic psoriasis, unspecified
CPT/HCPCS: 96372; 99212; 99214; G0463

== ENCOUNTER 2023-07-29 18:00 | Outpatient (CLI) | payer BC, SELFPAY ==
[2023-07-29 13:15] LABS: Basophils % 0.8 % (0.1-2.0); Eosinophils # 0.3 K/mm3 (0.0-0.4); Eosinophils % 7.5 % (0.1-12.0); Hematocrit 43.8 % (37.0-47.0); Hemoglobin 13.9 g/dL (12.2-16.2); Lymphocytes # 1.4 K/mm3 (0.7-4.5); Lymphocytes % 33.2 % (10-50); Mean Corpuscular HGB Conc 31.7 g/dL (31.8-35.4); Mean Corpuscular Hemoglobin 29.6 pg (27.0-31.2); Mean Corpuscular Volume 93.2 fl (81-99); Mean Platelet Volume 8.5 fl (7.4-10.4); Monocytes # 0.3 K/mm3 (0.1-1.0); Monocytes % 6.3 % (1.7-9.3); Neutrophils # 2.2 K/mm3 (1.8-7.8); Neutrophils % 52.2 % (37.0-80.0); Platelet Count 285 K/mm3 (142-424); Red Cell Distribution Width 14.1 % (11.5-17.5); White Blood Count 4.3 K/mm3 (4.8-10.8)
[2023-07-29 13:23] LABS: Hemoglobin A1C 6.7 % (4.0-6.0)
[2023-07-29 13:38] LABS: Erythrocyte Sedimentation Rate 14 mm/hr (0-30)
[2023-07-29 13:52] LABS: Alanine Aminotransferase 29 U/L (12-78); Albumin Level 4.2 g/dl (3.5-5.0); Albumin/Globulin Ratio 1.6 (1.1-1.8); Alkaline Phosphatase 67 U/L (38-126); Anion Gap 13.4 mEq/L (5-15); Aspartate Amino Transferase 26 U/L (14-36); Bilirubin,Total 0.6 mg/dl (0.2-1.3); Blood Urea Nitrogen 12 mg/dl (7-17); Calcium 9.9 mg/dl (8.4-10.2); Carbon Dioxide 31 mmol/L (22.0-30.0); Chloride 100 mmol/L (98-107); Chol/HDL Ratio 5.3 (1-3.5); Cholesterol 237 mg/dl (140-200); Estimated Glomerular Filt Rate 103 ml/min (>60); GFR (African American) 125 ML/MIN (>60); Globulin 2.6 g/dL (1.3-3.2); Glucose 130 mg/dl (74-100); HDL Cholesterol 45 mg/dl (40-60); Magnesium 1.9 mg/dl (1.6-2.3); Potassium 4.4 mmoL/L (3.5-5.1); Sodium 140 mmol/L (136-145); Total Protein,Serum 6.8 g/dl (6.3-8.2); Triglycerides 264 mg/dl (30-150); VLDL Cholesterol 53 mg/dL (0-40)
[2023-07-29 14:02] LABS: C-Reactive Protein 8.1 mg/L (0-4); Direct LDL Cholesterol 140.95 mg/dL (100-129)
[2023-07-29 14:09] LABS: 25-OH Vitamin D, Total 22.8 ng/mL (30-100)
[2023-07-29 14:23] LABS: Thyroid Stimulating Hormone 0.69 uIU/mL (0.465-4.68)
[2023-07-29 14:42] LABS: Vitamin B12 428 pg/mL (239-931)
[2023-07-29 15:32] LABS: Ferritin 225 ng/ml (11.1-264)
[2023-08-06 10:45] LABS: Antinuclear Antibodies (ANA) Negative
== END 2023-07-29 23:59 | disposition home or self-care (01) ==
LOC: LAB.DROPOF 07-30 10:29
PROVIDERS: PCP Nurse Practitioner Family; Visit Provider Nurse Practitioner Family
DX: L40.50 Arthropathic psoriasis, unspecified (principal); E03.9 Hypothyroidism, unspecified; I10 Essential (primary) hypertension; M79.7 Fibromyalgia; E78.5 Hyperlipidemia, unspecified; E11.9 Type 2 diabetes mellitus without complications; E55.9 Vitamin D deficiency, unspecified; Z79.84 Long term (current) use of oral hypoglycemic drugs; Z68.37 Body mass index [BMI] 37.0-37.9, adult
CPT/HCPCS: 80050; 80053; 80061; 82306; 82607; 82728; 83036; 83735; 84443; 85025; 85651; 86038; 86140

== ENCOUNTER 2023-10-07 12:11 | Outpatient (POV) | payer BC, SELFPAY | END 2023-10-07 23:59 | disposition home or self-care (01) | LOC: SC 12:11 | PROVIDERS: PCP Nurse Practitioner Family; Visit Provider Dermatology | DX: Z00.00 Encounter for general adult medical examination without abnormal findings (principal) ==

== ENCOUNTER 2023-11-12 10:58 | Outpatient (CLI) | payer BC, SELFPAY ==
[2023-11-12 18:55] LABS: Adenovirus,PCR Not Detected (NotDetected); Bordetella Pertussis Not Detected (NotDetected); Chlamydophila Pneumoniae, PCR Not Detected (NotDetected); Coronavirus 19, PCR Not Detected (NotDetected); Coronavirus 229E Not Detected (NotDetected); Coronavirus NL63 Not Detected (NotDetected); Coronavirus OC43 Not Detected (NotDetected); Coronovirus HKU1,PCR Not Detected (NotDetected); Human Metapneumovirus Not Detected (NotDetected); Influenza A, PCR Not Detected (NotDetected); Influenza AH1, 2009 Not Detected (NotDetected); Influenza AH1, PCR Not Detected (NotDetected); Influenza AH3,PCR Not Detected (NotDetected); Influenza B, PCR Not Detected (NotDetected); Mycoplasma Pneumoniae, PCR Not Detected (NotDetected); Parainfluenza 1, PCR Not Detected (NotDetected); Parainfluenza 2, PCR Not Detected (NotDetected); Parainfluenza 3, PCR Not Detected (NotDetected); Parainfluenza 4, PCR Not Detected (NotDetected); Respiratory Syncytial Virus Not Detected (NotDetected); Rhinovirus/Enterovirus Not Detected (NotDetected)
== END 2023-11-12 23:59 | disposition home or self-care (01) ==
LOC: LAB.DROPOF 11-13 10:05
PROVIDERS: PCP Nurse Practitioner Family; Visit Provider Nurse Practitioner Family
DX: R09.81 Nasal congestion (principal)
CPT/HCPCS: 87265; 87486; 87581; 87632; 87635

== ENCOUNTER 2024-04-12 13:48 | Outpatient (CLI) | payer BC, SELFPAY | END 2024-04-12 23:59 | disposition home or self-care (01) | LOC: LAB.DROPOF 04-14 10:56 | PROVIDERS: PCP Nurse Practitioner Family; Visit Provider Nurse Practitioner Family | DX: R05.9 Cough, unspecified (principal); R51.9 Headache, unspecified; R06.2 Wheezing; J34.89 Other specified disorders of nose and nasal sinuses; J40 Bronchitis, not specified as acute or chronic | CPT/HCPCS: 87635 ==

== ENCOUNTER 2024-07-12 14:35 | Outpatient (CLI) | payer BC, SELFPAY ==
[2024-07-12 16:08] LABS: Basophils # 0.1 K/mm3 (0-0.2); Basophils % 0.6 % (0.1-2.0); Eosinophils # 0.2 Kmm3 (0.0-0.4); Eosinophils % 2.3 % (0.1-12.0); Hematocrit 46.9 % (37.0-47.0); Hemoglobin 14.8 g/dL (12.2-16.2); Immature Granulocytes # 0.11 10^3uL; Immature Granulocytes % 1.3 %; Lymphocytes # 3.1 K/mm3 (0.7-4.5); Lymphocytes % 37.5 % (10-50); Mean Corpuscular HGB Conc 31.6 g/dL (31.8-35.4); Mean Corpuscular Hemoglobin 29.8 pg (27.0-31.2); Mean Corpuscular Volume 94.4 fl (81-99); Mean Platelet Volume 10.4 fl (7.4-10.4); Monocytes # 0.6 K/mm3 (0.1-1.0); Monocytes % 7.5 % (1.7-9.3); Neutrophils # 4.2 K/mm3 (1.8-7.8); Neutrophils % 50.8 % (37.0-80.0); Nucleated Red Blood Cells # 0 10^3/uL; Nucleated Red Blood Cells % 0 %; Platelet Count 331 K/mm3 (142-424); Red Blood Count 4.97 M/mm3 (4.20-5.40); Red Cell Distribution Width 13.6 % (11.5-17.5); Red Cell Distribution Width-SD 47.2 fL; White Blood Count 8.2 K/mm3 (4.8-10.8)
[2024-07-12 16:51] LABS: Erythrocyte Sedimentation Rate 13 mm/hr (0-30)
[2024-07-12 17:32] LABS: Chloride 99 mmol/L (98-107); Potassium 4.3 mmoL/L (3.5-5.1); Sodium 137 mmol/L (136-145)
[2024-07-12 17:34] LABS: Blood Urea Nitrogen 21 mg/dl (7-17); Estimated Glomerular Filt Rate 74 ml/min (>60); GFR (African American) 89 ML/MIN (>60)
[2024-07-12 17:35] LABS: Alanine Aminotransferase 38 U/L (12-78); Albumin/Globulin Ratio 2.1 (1.1-1.8); Alkaline Phosphatase 70 U/L (38-126); Anion Gap 12.3 mEq/L (5-15); Aspartate Amino Transferase 28 U/L (14-36); Bilirubin,Total 0.6 mg/dl (0.2-1.3); Calcium 10.6 mg/dl (8.4-10.2); Carbon Dioxide 30 mmol/L (22.0-30.0); Chol/HDL Ratio 4.2 (1-3.5); Cholesterol 297 mg/dl (140-200); Globulin 2.4 g/dL (1.3-3.2); Glucose 112 mg/dl (74-100); HDL Cholesterol 70 mg/dl (40-60); Total Protein,Serum 7.4 g/dl (6.3-8.2); Triglycerides 217 mg/dl (30-150); VLDL Cholesterol 43 mg/dL (0-40)
[2024-07-12 17:37] LABS: Microalbumin < 6.000 mg/L (0-16.7)
[2024-07-12 17:45] LABS: Hemoglobin A1C 6.7 % (4.0-6.0)
[2024-07-12 17:47] LABS: Direct LDL Cholesterol 183.73 mg/dL (100-129)
[2024-07-12 18:03] LABS: Uric Acid 4.9 mg/dl (2.5-6.2)
[2024-07-12 18:08] LABS: 25-OH Vitamin D, Total 27.2 ng/mL (30-100); Thyroid Stimulating Hormone 1.43 uIU/mL (0.465-4.68)
[2024-07-12 18:12] LABS: Ferritin 233 ng/ml (11.1-264)
[2024-07-12 18:52] LABS: Vitamin B12 427 pg/mL (239-931)
--- OUTSIDE RECORDS SUMMARY | 2024-07-12 22:10 | XMS_ITS ---
Author Organization Unknown Medications Medication Instructions Effective Dates (start - stop) Status dicyclomine hydrochloride 10 MG Oral Capsule 2829-73-56W90:00:00.000+00 :00 - Completed dicyclomine hydrochloride 10 MG Oral Capsule 9543-04-25M79:00:00.000+00 :00 - Completed dapagliflozin 5 MG Oral Tabl et [xi] 0998-88-23E68:00:00.000+00 :00 - Completed dicyclomine hydrochloride 10 MG Oral Capsule 7184-31-05D84:00:00.000+00 :00 - Completed dicyclomine hydrochloride 10 MG Oral Capsule 6453-66-45N89:00:00.000+00 :00 - Completed dapagliflozin 5 MG Oral Tabl et [xiok] 7725-68-30Q52:00:00.000+00 :00 - Completed dapagliflozin 5 MG Oral Tabl et [xi] 8396-92-10Z67:00:00.000+00 :00 - Completed dapagliflozin 5 MG Oral Tabl et [xi] 3253-32-00Q84:00:00.000+00 :00 - Completed dapagliflozin 5 MG Oral Tabl et [xi] 5826-91-33U86:00:00.000+00 :00 - Completed dicyclomine hydrochloride 10 MG Oral Capsule 3638-28-10U95:00:00.000+00 :00 - Completed dapagliflozin 5 MG Oral Tabl et [xi] 2135-64-19M38:00:00.000+00 :00 - Completed dapagliflozin 5 MG Oral Tabl et [xi] 0026-15-50H54:00:00.000+00 :00 - Completed levocetirizine dihydrochlori de 5 MG Oral Tablet 0132-66-95W93:00:00.000+00 :00 - Completed dicyclomine hydrochloride 10 MG Oral Capsule 3961-06-58Z66:00:00.000+00 :00 - Completed dapagliflozin 5 MG Oral Tabl et [[facility]] 3565-06-78D05:00:00.000+00 :00 - Completed dapagliflozin 5 MG Oral Tabl et [[facility]] 3482-49-62G14:00:00.000+00 :00 - Completed dapagliflozin 5 MG Oral Tabl et [[facility]] 1313-39-60H01:00:00.000+00 :00 - Completed dicyclomine hydrochloride 10 MG Oral Capsule 9425-32-59G58:00:00.000+00 :00 - Completed dapagliflozin 5 MG Oral Tabl et [[facility]] 4822-98-05Z38:00:00.000+00 :00 - Completed latanoprost 0.05 MG/ML Ophth almic Solution 5721-22-81O57:00:00.000+00 :00 - Completed clarithromycin 500 MG Oral Tablet 7317-25-50N99:00:00.000+00 :00 - Completed latanoprost 0.05 MG/ML Ophth almic Solution 2274-36-70H19:00:00.000+00 :00 - Completed amitriptyline hydrochloride 10 MG Oral Tablet 7561-81-97O69:00:00.000+00 :00 - Completed amitriptyline hydrochloride 10 MG Oral Tablet 2791-61-95Y72:00:00.000+00 :00 - Completed levothyroxine sodium 0.175 M G Oral Tablet 6448-29-40Q09:00:00.000+00 :00 - Completed levothyroxine sodium 0.15 MG Oral Tablet 2218-92-65D90:00:00.000+00 :00 - Completed levothyroxine sodium 0.175 M G Oral Tablet 6506-59-49I39:00:00.000+00 :00 - Completed fluticasone propionate 0.05 MG/ACTUAT Metered Dose Nas[place] 8816-73-59M69:00:00 .000+00 :00 - Completed levothyroxine sodium 0.15 MG Oral Tablet 1614-22-51H29:00:00.000+00 :00 - Completed levothyroxine sodium 0.175 M G Oral Tablet 1449-98-97H83:00:00.000+00 :00 - Completed amitriptyline hydrochloride 10 MG Oral Tablet 6520-64-09D13:00:00.000+00 :00 - Completed levothyroxine sodium 0.15 MG Oral Tablet 5974-11-64U62:00:00.000+00 :00 - Completed levothyroxine sodium 0.15 MG Oral Tablet 8838-60-16C59:00:00.000+00 :00 - Completed amitriptyline hydrochloride 10 MG Oral Tablet 6623-43-93U98:00:00.000+00 :00 - Completed fluticasone propionate 0.05 MG/ACTUAT Metered Dose [place] 8166-13-64F83:00:00 .000+00 :00 - Completed amitriptyline hydrochloride 10 MG Oral Tablet 4938-25-27Q11:00:00.000+00 :00 - Completed latanoprost 0.05 MG/ML Ophth almic Solution 5851-62-71P78:00:00.000+00 :00 - Completed latanoprost 0.05 MG/ML Ophth almic Solution 7789-87-65P27:00:00.000+00 :00 - Completed clobetasol propionate 0.0005 MG/MG Topical Ointment 8065-12-24C43:00:00.000+00 :00 - Completed fluticasone propionate 0.05 MG/ACTUAT Metered Dose [place] 9411-43-81U08:00:00 .000+00 :00 - Completed latanoprost 0.05 MG/ML Ophth almic Solution 2112-14-29D07:00:00.000+00 :00 - Completed amitriptyline hydrochloride 10 MG Oral Tablet 0473-33-04F08:00:00.000+00 :00 - Completed montelukast 10 MG Oral Tablet 15-09-20:00:00.000+00 :00 - Completed latanoprost 0.05 MG/ML Ophth almic Solution 8003-10-59G28:00:00.000+00 :00 - Completed latanoprost 0.05 MG/ML Ophth almic Solution 8885-35-58U19:00:00.000+00 :00 - Completed latanoprost 0.05 MG/ML Ophth almic Solution 2184-29-33J59:00:00.000+00 :00 - Completed latanoprost 0.05 MG/ML Ophth almic Solution 4836-54-63H69:00:00.000+00 :00 - Completed tramadol hydrochloride 50 MG Oral Tablet 0347-62-53Z43:00:00.000+00 :00 - Completed montelukast 10 MG Oral Tablet 16-05-13:00:00.000+00 :00 - Completed montelukast 10 MG Oral Tablet 16-08-25:00:00.000+00 :00 - Completed latanoprost 0.05 MG/ML Ophth almic Solution 8545-81-44M34:00:00.000+00 :00 - Completed latanoprost 0.05 MG/ML Ophth almic Solution 2618-05-01L01:00:00.000+00 :00 - Completed montelukast 10 MG Oral Tablet 17-07-19:00:00.000+00 :00 - Completed latanoprost 0.05 MG/ML Ophth almic Solution 0054-15-08C67:00:00.000+00 :00 - Completed montelukast 10 MG Oral Tablet 18-03-19:00:00.000+00 :00 - Completed levocetirizine dihydrochlori de 5 MG Oral Tablet 5667-79-01V13:00:00.000+00 :00 - Completed gabapentin 800 MG Oral Tablet 14-02-13:00:00.000+00 :00 - Completed levothyroxine sodium 0.15 MG Oral Tablet 7723-05-92E58:00:00.000+00 :00 - Completed montelukast 10 MG Oral Tablet 18-04-17:00:00.000+00 :00 - Completed amitriptyline hydrochloride 10 MG Oral Tablet 8599-79-72F26:00:00.000+00 :00 - Completed meloxicam 15 MG Oral Tablet 2021:00:00.000+00 :00 - Completed gabapentin 800 MG Oral Tablet 17-07-07:00:00.000+00 :00 - Completed montelukast 10 MG Oral Tablet 15-10-14:00:00.000+00 :00 - Completed amitriptyline hydrochloride 10 MG Oral Tablet 4725-55-00T74:00:00.000+00 :00 - Completed amitriptyline hydrochloride 10 MG Oral Tablet 1898-20-49G25:00:00.000+00 :00 - Completed gabapentin 800 MG Oral Tablet 16-08-25:00:00.000+00 :00 - Completed levothyroxine sodium 0.15 MG Oral Tablet 5202-40-46L90:00:00.000+00 :00 - Completed gabapentin 800 MG Oral Tablet 14-09-28:00:00.000+00 :00 - Completed simvastatin 20 MG Oral Tablet 16-01-12:00:00.000+00 :00 - Completed levocetirizine dihydrochlori de 5 MG Oral Tablet 1484-02-82F79:00:00.000+00 :00 - Completed gabapentin 800 MG Oral Tablet 16-06-04:00:00.000+00 :00 - Completed gabapentin 800 MG Oral Tablet 15-01-10:00:00.000+00 :00 - Completed simvastatin 20 MG Oral Tablet 15-12-12:00:00.000+00 :00 - Completed levocetirizine dihydrochlori de 5 MG Oral Tablet 2905-43-51L95:00:00.000+00 :00 - Completed levothyroxine sodium 0.15 MG Oral Tablet 9527-01-97W30:00:00.000+00 :00 - Completed montelukast 10 MG Oral Tablet 14-02-13:00:00.000+00 :00 - Completed montelukast 10 MG Oral Tablet 15-12-13:00:00.000+00 :00 - Completed levocetirizine dihydrochlori de 5 MG Oral Tablet 0171-39-82A72:00:00.000+00 :00 - Completed gabapentin 800 MG Oral Tablet 16-05-05:00:00.000+00 :00 - Completed gabapentin 800 MG Oral Tablet 15-12-02:00:00.000+00 :00 - Completed montelukast 10 MG Oral Tablet 15-11-13:00:00.000+00 :00 - Completed levocetirizine dihydrochlori de 5 MG Oral Tablet 8242-16-56X16:00:00.000+00 :00 - Completed simvastatin 20 MG Oral Tablet 16-05-13:00:00.000+00 :00 - Completed levothyroxine sodium 0.15 MG Oral Tablet 3142-42-64I36:00:00.000+00 :00 - Completed tobramycin 3 MG/ML Ophthalmi c Solution 5162-16-67A25:00:00.000+00 :00 - Completed levothyroxine sodium 0.15 MG Oral Tablet 4654-47-63G56:00:00.000+00 :00 - Completed montelukast 10 MG Oral Tablet 16-01-12:00:00.000+00 :00 - Completed amitriptyline hydrochloride 10 MG Oral Tablet 3565-52-97O33:00:00.000+00 :00 - Completed amitriptyline hydrochloride 10 MG Oral Tablet 1904-23-53O06:00:00.000+00 :00 - Completed {21 (prednisone 5 MG Oral Ta blet) } Pack 0233-42-31M05:00:00.000+00 :00 - Completed citric acid 75 MG/ML / magne sium oxide 21.9 MG/ML / picosulfate sodium 0.0625 MG/ML Oral Solution [Clenpiq] 1529-42-70Q10:00:00.000+00 :00 - Completed amlodipine 5 MG / hydrochlorothiazide 12.5 MG / olmesartan medoxomil 40 MG Oral Tablet 0823-19-64M23:00:00.000+00 :00 - Completed amlodipine 5 MG / hydrochlorothiazide 12.5 MG / olmesartan medoxomil 40 MG Oral Tablet 3832-14-64G65:00:00.000+00 :00 - Completed acetaminophen 325 MG / oxyco done hydrochloride 5 MG Oral Tablet 1107-03-67I93:00:00.000 +00 :00 - Completed amlodipine 5 MG / hydrochlorothiazide 12.5 MG / olmesartan medoxomil 40 MG Oral Tablet 7420-44-62B99:00:00.000+00 :00 - Completed amlodipine 5 MG / hydrochlorothiazide 12.5 MG / olmesartan medoxomil 40 MG Oral Tablet 6198-93-36U98:00:00.000+00 :00 - Completed amlodipine 5 MG / hydrochlorothiazide 12.5 MG / olmesartan medoxomil 40 MG Oral Tablet 0191-46-00F20:00:00.000+00 :00 - Completed amlodipine 5 MG / hydrochlorothiazide 12.5 MG / olmesartan medoxomil 40 MG Oral Tablet 9024-00-17X09:00:00.000+00 :00 - Completed acetaminophen 325 MG / oxyco done hydrochloride 5 MG Oral Tablet 2174-07-47W34:00:00.000 +00 :00 - Completed amlodipine 5 MG / hydrochlorothiazide 12.5 MG / olmesartan medoxomil 40 MG Oral Tablet 6737-69-85V22:00:00.000+00 :00 - Completed amlodipine 5 MG / hydrochlorothiazide 12.5 MG / olmesartan medoxomil 40 MG Oral Tablet 7880-05-70Q62:00:00.000+00 :00 - Completed amoxicillin 875 MG / clavula [place] 125 MG Oral Tablet 8672-76-47Q93:00:00.000+00 :00 - Completed amoxicillin 875 MG / clavula [place] 125 MG Oral Tablet 6467-67-53U32:00:00.000+00 :00 - Completed acetaminophen 325 MG / oxyco done hydrochloride 5 MG Oral Tablet 6777-44-09N50:00:00.000 +00 :00 - Completed amlodipine 5 MG / hydrochlorothiazide 12.5 MG / olmesartan medoxomil 40 MG Oral Tablet 1633-69-71D89:00:00.000+00 :00 - Completed amlodipine 5 MG / hydrochlorothiazide 12.5 MG / olmesartan medoxomil 40 MG Oral Tablet 6001-65-41U04:00:00.000+00 :00 - Completed Patient Care team information Name Category Status Period Participants - - Proposed period not known -
[2024-07-13 09:10] LABS: RA Latex Turbid. <10.0 IU/mL (<14.0); Triiodothyronine (T3) Free 2.7 pg/mL (2.0-4.4)
[2024-07-14 12:14] LABS: Antinuclear Antibodies, IFA Positive (.)
== END 2024-07-12 23:59 | disposition home or self-care (01) ==
LOC: LAB.DROPOF 22:09
PROVIDERS: PCP Nurse Practitioner Family; Visit Provider Nurse Practitioner Family
DX: E06.3 Autoimmune thyroiditis (principal); Z86.2 Personal history of diseases of the blood and blood-forming organs and certain disorders involving the immune mechanism; I10 Essential (primary) hypertension; L40.50 Arthropathic psoriasis, unspecified; E11.9 Type 2 diabetes mellitus without complications; R79.89 Other specified abnormal findings of blood chemistry; E78.5 Hyperlipidemia, unspecified; M79.7 Fibromyalgia; D64.9 Anemia, unspecified; E83.52 Hypercalcemia
CPT/HCPCS: 80053; 80061; 82043; 82306; 82607; 82728; 83036; 83970; 84443; 84481; 84550; 85025; 85651; 86038; 86431